=== PATIENT | male | born 1955 | race Caucasian/White ===

== ENCOUNTER 2019-09-18 12:19 | Outpatient (CLI) | payer OTHER, SELFPAY ==
--- NOTE | 2019-09-18 12:15 | XRR_ITS ---
PROCEDURE INFORMATION: Exam: XR Abdomen, 1 View Exam date and time: 09/18/2019 12:47 PM Age: 63 years old Clinical indication: Condition or disease; Other: Renal and ureteric calculus; Prior surgery; Surgery date: 6+ months; Surgery type: Lithotripsy TECHNIQUE: Imaging protocol: XR of the abdomen. Views: Frontal supine view of the abdomen. 1 View. COMPARISON: CR XR KUB [id number] 08/28/2018 12:24 PM FINDINGS: Gastrointestinal tract: Normal. No bowel dilation. Organs: There are several faint millimeter in size calcifications overlying the left renal shadow, similar to prior study. Bones/joints: Unremarkable. XR/XR KUB [id number] IMPRESSION: There are several faint millimeter in size calcifications overlying the left renal shadow, similar to prior study.
== END 2019-09-18 12:20 | disposition home or self-care (01) ==
LOC: RAD 12:27
PROVIDERS: Family Provider Family Medicine; PCP Internal Medicine; Visit Provider Urology
DX: N20.2 Calculus of kidney with calculus of ureter (principal)
CPT/HCPCS: 74018; 81001

== ENCOUNTER 2020-04-18 18:00 | Inpatient (IN) | payer OTHER, MEDICARE, SELFPAY ==
[2020-04-18] VITALS (7 sets, daily range): BP systolic 121–145; BP diastolic 73–99; PULSE 62–70; RESP 16–18; TEMP 36.6; O2SAT 94–98; BMI 31.7
--- NOTE | 2020-04-18 18:10 | XRR_ITS ---
PROCEDURE INFORMATION: Exam: XR Left Knee Exam date and time: 04/18/2020 6:12 PM Age: 64 years old Clinical indication: Injury or trauma; Fall; Initial encounter; Blunt trauma; Knee; Left TECHNIQUE: Imaging protocol: XR Left knee. Views: 3 views. COMPARISON: No relevant prior studies available. FINDINGS: Bones/joints: There is an overriding fracture of the proximal fibula neck. No fracture of the proximal tibia, femur or patella. Soft tissues: Normal. XR/XR knee LT 3V* [id number] IMPRESSION: There is an overriding fracture of the proximal fibula neck.
--- NOTE | 2020-04-18 18:10 | XRR_ITS ---
PROCEDURE INFORMATION: Exam: XR Left Foot Exam date and time: 04/18/2020 6:41 PM Age: 64 years old Clinical indication: Injury or trauma; Fall; Initial encounter; Blunt trauma; Foot; Left; Injury date: Today TECHNIQUE: Imaging protocol: XR Left foot. Views: 1 or 2 views. COMPARISON: No relevant prior studies available. FINDINGS: Bones/joints: No periosteal reaction or inflammatory erosions. No acute fracture. No dislocation. There is a multi partite os peroneum. The Lisfranc joint alignment is intact. No bony destruction or osteomyelitis. Soft tissues: There is no foreign body. XR/XR foot LT 2V [id number] IMPRESSION: No acute bony abnormality is identified.
--- NOTE | 2020-04-18 18:10 | XRR_ITS ---
PROCEDURE INFORMATION: Exam: XR Left Tibia and Fibula Exam date and time: 04/18/2020 6:43 PM Age: 64 years old Clinical indication: Injury or trauma; Fall; Initial encounter; Fracture, traumatic; Displaced; Left; Shaft of the tibia; Injury date: Today TECHNIQUE: Imaging protocol: XR Left tibia and fibula. Views: 2 views. COMPARISON: No relevant prior studies available. FINDINGS: Bones/joints: There is a spiral fracture of the distal tibia metadiaphysis with overriding of the fracture fragments. No definite extension of the tibia fracture into the ankle joint. There is a overriding fracture of the proximal fibula neck. Soft tissues: There is soft tissue edema. No foreign body. XR/XR tibia fibula LT 2V [id number] IMPRESSION: 1. There is a spiral fracture of the distal tibia metadiaphysis with overriding of the fracture fragments. 2. There is a overriding fracture of the proximal fibula neck.
--- NOTE | 2020-04-18 18:11 | XRR_ITS ---
PROCEDURE INFORMATION: Exam: XR Left Ankle Exam date and time: 04/18/2020 6:41 PM Age: 64 years old Clinical indication: Injury or trauma; Fall; Initial encounter; Blunt trauma; Ankle; Left; Injury date: Today TECHNIQUE: Imaging protocol: XR Left ankle. Views: 1 or 2 views. COMPARISON: No relevant prior studies available. FINDINGS: Bones/joints: There is a spiral fracture of the distal tibia metadiaphysis with overriding of the fracture fragments. No definite extension of the tibia fracture into the ankle joint. There is a overriding fracture of the proximal fibula neck. No knee joint effusion. No additional acute fracture in the ankle. Soft tissues: There is soft tissue edema. No foreign body. XR/XR ankle LT 2V [id number] IMPRESSION: 1. There is a spiral fracture of the distal tibia metadiaphysis with overriding of the fracture fragments. No extension into the ankle joint is identified. 2. There is a overriding fracture of the proximal fibula neck.
--- NOTE | 2020-04-18 18:37 | W.ED.EXTPRO ---
HPI - Extremity Problem General: Chief complaint: Extremity Injury, Lower Stated complaint: FALL WITH LEG DEFORMITY Time Seen by Provider: 04/18/20 18:14 Source: patient and EMS Mode of arrival: EMS Limitations: no limitations History of Present Illness: HPI Narrative: Julio is a very nice 64-year-old male who comes in complaining of injury to his left lower leg. He was working in at home when the sheet rock that he was standing on gave way causing him to fall through. He had a obvious deformity of his left lower leg to the left side. Is able to position himself and comfort and able to straighten his leg back out. Is complaining of severe pain to his left lower extremity. He denies any distal numbness or weakness of the foot. He denies any injuries to any other parts of his body. Denies any numbness or weakness. He is unable to bear weight secondary to pain. MD Complaint: extremity pain Pain Consistency: constant Location: left Severity scale (1-10): 8 Quality: sharp and dull Radiation: none Relieving factors: immobilization Exacerbating factors: range of motion and weight bearing Associated symptoms: Deny chest pain, fever(s) or rash Review of Systems Const: Denies: fever(s), chills, body aches, fatigue, malaise or diaphoresis Eyes: Denies: change in vision, blurry vision, photophobia, eye discomfort, eye discharge, eye redness or yellow eyes ENMT: Denies: throat pain, odynophagia, hoarseness, swelling of lips/tongue, ear or mastoid pain, ear discharge, change in hearing or nasal discharge Card: Denies: chest pain, palpitations, irregular heart rhythm, edema, lightheadedness, syncope, pre-syncope, dyspnea on exertion or orthopnea Resp: Denies: dyspnea, productive cough, non-productive cough, wheezing, hemoptysis or chest congestion GI: Denies: abdominal pain, nausea, vomiting, hematemesis, coffee ground emesis, heartburn, diarrhea, constipation, GI cramping, hematochezia or melena : Denies: flank pain, dysuria, urinary frequency, urinary urgency or hematuria Musc: Reports: extremity pain and joint pain; Denies: neck pain, back pain, extremity swelling, joint swelling, joint redness, joint warmth or joint stiffness Skin/Breast: Denies: rash, pruritus, erythema, skin pain or skin tenderness Neuro: Denies: headache(s), numbness in extremities, weakness in extremities, sensory changes, lack of coordination, difficulty walking, dizziness, vertigo, confusion, Slurred speech present or seizure-like activity Jf/Lymph: Denies: easy bruising, easy bleeding, petechiae, purpura or enlarged lymph nodes All/Imm: Denies: urticaria, throat swelling, tongue swelling, facial swelling or acute wheezing PFSH ED PFSH: Medical History (Updated 04/18/20 @ 21:28 by Shilpa Contreras) BPH without obstruction/lower urinary tract symptoms Hyperlipidemia Hypertension Recurrent kidney stones Renal and ureteric calculus Status post extracorporeal shock wave therapy WITH STENT PLACEMENTS X3 Surgical History (Updated 04/18/20 @ 18:38 by Shilpa Contreras) S/P trigger finger release Family History Mother , at age 73 Leukemia Father , at age 78 Parkinsons Heart disease Other CAD (coronary artery disease) Cancer Dementia Social History Smoking and tobacco status: never smoked Alcohol intake: current Alcohol intake frequency: holidays/special occasions only Adopted: No Caregiver/support person: No Lives independently: No Household members: spouse Marital status: Current occupational status: disabled History of recent travel: No Physical Exam Const: COMMON NORMALS: no acute distress, patient oriented x3, no limitations and alert GENERAL APPEARANCE: cooperative HENMT: COMMON NORMALS: normocephalic, atraumatic, external ears normal, EAC's normal and Normal external nose present HEAD & SCALP: normal to inspection, normocephalic and atraumatic FACE & SINUS: normal facial exam and face symmetric NOSE: Normal external nose present and Normal nares present EXTERNAL EAR: Yes external ears normal EXTERNAL AUDITORY CANAL: EAC's normal MOUTH: Normal oral and palatal mucosa present, lip normal and tongue normal Eye: COMMON NORMALS: Equal, round and reactive pupils present and conjunctivae normal GENERAL EYE: appearance normal, both eyes and all related structures ALIGNMENT: Yes alignment normal PERIORBITAL: periorbital findings normal EYELID: eyelids normal CONJUNCTIVA: Yes conjunctivae normal SCLERA: sclerae normal PUPIL: Yes Equal, round and reactive pupils present Neck/C-Spine: COMMON NORMALS: full ROM, no lymphadenopathy, supple, no meningeal signs and no JVD GENERAL: Yes normal visual inspection and Yes trachea midline Chest: COMMONS NORMALS: normal inspection of the chest and normal palpation of entire chest wall Resp: COMMON NORMALS: normal respiratory effort, No retractions, No use of accessory muscles and clear to auscultation bilaterally EFFORT & INSPECTION: Yes able to speak in complete sentences and Yes symmetric chest movement AUSCULTATION: clear to auscultation bilaterally, no crackles, no rales, no rhonchi and no wheezes Cardio: COMMON NORMALS: no JVD, regular rate, regular rhythm, S1 normal heart sound present and S2 normal heart sound present RATE: regular rate RHYTHM: regular rhythm HEART SOUNDS: S1 normal heart sound present, S2 normal heart sound present, no click, no gallops, no murmurs and no rubs GI: COMMON NORMALS: Soft to palpation and No hepatosplenomegaly present PALPATION: Yes Soft to palpation, No Tenderness to palpation present (GI), No Guarding due to palpation present (GI), No Rigid due to palpation, Yes No hepatosplenomegaly present, No Hernia present, No Palpable mass present and No Pulsatile mass present : COMMON NORMALS: Yes no CVA tenderness BLADDER/KIDNEY EXAM: Yes no CVA tenderness Back/Pelvis: COMMON NORMALS: no CVA tenderness, thoracic and lumbar spine normal to inspection, no thoracic nor lumbar tenderness and thoraco-lumbar ROM normal Extremity: COMMON NORMALS: capillary refill normal, no joint enlargement and no clubbing, cyanosis or edema NARRATIVE EXTREMITY EXAM: Left lower extremity with tenderness to palpation just below the knee extending all the way down to the ankle. Dorsalis pedis and posterior tibial pulses intact to the foot. Capillary refill less than 3 seconds. Patient able to wiggle his toes and has normal sensation distally in the foot. No foot pain to palpation. Neuro: COMMON NORMALS: patient oriented x3, CN's II-XII intact bilaterally, moves all extremities, no focal motor deficits and no sensory deficits noted SENSORIUM/ORIENTATION: Yes alert MENINGEAL SIGNS: Yes no meningeal signs SPEECH: speech normal Psych: COMMON NORMALS: mental status grossly normal, Normal thought process present, cooperative, normal affect, speech normal and activity/motor behavior normal SPEECH: Yes normal speech THOUGHT PROCESS: Normal thought process present Skin: COMMON NORMALS: no rashes or lesions noted, turgor normal, no jaundice, no petechiae and no mottling GENERAL SKIN EXAM: no rashes or lesions noted and turgor normal Course Vital Signs: Vital signs: Vital Signs Temperature 97.8 F 04/18/20 18:04 Pulse Rate 67 04/18/20 20:00 Respiratory Rate 16 04/18/20 21:12 Blood Pressure 145/99 04/18/20 20:00 Pulse Oximetry 96 04/18/20 21:12 MDM - Extremity (Nontraumatic) MDM Narrative: Medical decision making narrative: The case was reviewed with both Drs. Valdez and Tasneem, they will admit and consult respectively. The patient was placed in a posterior and sugar tong splint but his pain was still not controlled. He was adamant he would not be able to go home secondary to the significant pain he was still having. Patient be admitted for surgery likely in the next 1 to 2 days. Lab Data: Attestation: I reviewed the patient's lab results. Labs: Lab Results 04/18/20 04/18/20 04/18/20 Range/Units 19:29 19:29 19:29 WBC 16.6 H (4.0-10.0) 10^3/ uL RBC 5.06 (4.1-5.3) 10^6/u L Hgb 15.0 (11.7-16.6) g/dL Hct 45.8 (42.0-52.0) % MCV 90.5 (80-94) fL MCH 29.6 (28.0-34.0) pg MCHC 32.8 (30.0-36.0) g/dL RDW 12.5 (12.1-15.1) % Plt Count 239 (130-400) 10^3/c mm MPV 9.7 (7.4-10.4) fL Neut % (Auto) 83.3 % Lymph % (Auto) 10.0 % [place] % (Auto) 5.3 % Eos % (Auto) 0.4 % Baso % (Auto) 0.4 % Neut # (Auto) 13.78 H (1.8-7.7) 10^3/u L Lymph # (Auto) 1.7 (0.8-4.8) 10^3/u L [place] # (Auto) 0.9 (0.2-0.9) 10^3/u L Eos # (Auto) 0.1 (0.0-0.8) 10^3/u L Baso # (Auto) 0.1 (0.0-0.1) 10^3/u L Nucleated RBC % (a uto) 0 % Nucleated RBCs # 0.0 /100WBC PT 12.10 (12.1-14.9) SECO NDS INR 0.87 (0.8-1.2) Sodium 139 (136-145) mmol/L Potassium 3.6 (3.5-5.1) mmol/L Chloride 100 (98-107) mmol/L Carbon Dioxide 28 (22-29) mmol/L Anion Gap 14.6 (5-19) BUN 18 (8-23) mg/dL Creatinine 1.3 H (0.7-1.2) mg/dL GFR Calculation 55.9 L (90-130) mL/min Glucose 111 (65-115) mg/dL Calculated Osmolal ity 285 (285-295) mOsm/k g Calcium 9.2 (8.5-10.5) mg/dL Total Bilirubin 0.5 (0.15-1.2) mg/dL AST 20 (0-40) U/L ALT 25 (0-41) U/L Alkaline Phosphata se 91 (40-130) IU/L Total Protein 7.4 (6.6-8.7) g/dL Albumin 4.5 (3.5-5.2) g/dL Globulin 2.9 (1.3-4.6) g/dL Imaging Data^: CT Left Tib-Fib: Radiologist's impression: [address] [place] [address] CT Scan Report Signed Patient: Julio Peña Unit #: [id number] : 1955 Age/Sex: 64 / M ADM Date: 04/18/20 Loc: ER Room/Bed: Attending Dr: Ordering Provider/Ordering MD: Shilpa Contreras DO Date of Service: 04/18/20 Procedure(s): CT lower leg LT wo con* [id number] Accession Number(s): [id number] Report Number: [id number] PROCEDURE INFORMATION: Exam: CT Left Lower Extremity Without Contrast; Lower Leg Exam date and time: 04/18/2020 7:28 PM Age: 64 years old Clinical indication: Injury or trauma; Initial encounter; Fracture, traumatic; Displaced; Fibula and tibia; Left; Shaft of the fibula; Lower end of tibia; Patient HX: L tib/fib FX from fall; Additional info: Fracture/injury TECHNIQUE: Imaging protocol: CT of the Left lower extremity without contrast was performed. Exam focused on the lower leg. Radiation optimization: All CT scans at this facility use at least one of these dose optimization techniques: automated exposure control; mA and/or kV adjustment per patient size (includes targeted exams where dose is matched to clinical indication); or iterative reconstruction. COMPARISON: CR XR tibia fibula LT 2V [id number] 04/18/2020 6:13 PM RADIATION DOSE METRICS: Total DLP (mGy-cm): 1111.71 FINDINGS: Bones/joints: There is an overriding fracture of the proximal fibula metadiaphysis. There is a comminuted overriding spiral fracture of the distal tibia metadiaphysis with nondisplaced fracture lines extending into the tibiotalar joint. There is posterior displacement of the distal fracture fragment with foreshortening of the tibia. Nondisplaced fracture line in the sagittal plane and 2 fracture lines in the coronal plane are identified at the articular surface of the ankle best seen on series 3, image 171, sagittal image series 401, image 42 and coronal image 35. No dislocation. No fracture of the visualized talus calcaneus or navicular bone. The distal fibula is intact. The ankle mortise is intact. There is no knee joint effusion. Soft tissues: No foreign body. There is soft tissue edema adjacent to the fractures of the tibia and fibula. CT/CT lower leg LT wo con* [id number] IMPRESSION: 1. There is an overriding fracture of the proximal fibula metadiaphysis. 2. Comminuted overriding fracture of the distal tibial metadiaphysis extending into the tibiotalar joint. Radiation Dose CTDIVOL = (mGy): DLP = 1111.71 (mGy-cm) Dictated By: Maggie Leung Signed By: Maggie Leung Signed Date/Time: 04/18/202002 DD/ 00 Discharge Plan Discharge Patient Disposition: Admitted As Inpatient Clinical Impression: Uncontrolled pain Closed fracture of left fibula and tibia Qualifiers: Encounter type: initial encounter Qualified Code(s): S82.202A - Unspecified fracture of shaft of left tibia, initial encounter for closed fracture Condition: Stable Referrals: Rajiv Cruz [Primary Care Provider] - Coding Level of Care Code ED Oral Surgeon for Chg Fwd Exam Comprehensive
--- NOTE | 2020-04-18 19:13 | CTR_ITS ---
PROCEDURE INFORMATION: Exam: CT Left Lower Extremity Without Contrast; Lower Leg Exam date and time: 04/18/2020 7:28 PM Age: 64 years old Clinical indication: Injury or trauma; Initial encounter; Fracture, traumatic; Displaced; Fibula and tibia; Left; Shaft of the fibula; Lower end of tibia; Patient HX: L tib/fib FX from fall; Additional info: Fracture/injury TECHNIQUE: Imaging protocol: CT of the Left lower extremity without contrast was performed. Exam focused on the lower leg. Radiation optimization: All CT scans at this facility use at least one of these dose optimization techniques: automated exposure control; mA and/or kV adjustment per patient size (includes targeted exams where dose is matched to clinical indication); or iterative reconstruction. COMPARISON: CR XR tibia fibula LT 2V [id number] 04/18/2020 6:13 PM RADIATION DOSE METRICS: Total DLP (mGy-cm): 1111.71 FINDINGS: Bones/joints: There is an overriding fracture of the proximal fibula metadiaphysis. There is a comminuted overriding spiral fracture of the distal tibia metadiaphysis with nondisplaced fracture lines extending into the tibiotalar joint. There is posterior displacement of the distal fracture fragment with foreshortening of the tibia. Nondisplaced fracture line in the sagittal plane and 2 fracture lines in the coronal plane are identified at the articular surface of the ankle best seen on series 3, image 171, sagittal image series 401, image 42 and coronal image 35. No dislocation. No fracture of the visualized talus calcaneus or navicular bone. The distal fibula is intact. The ankle mortise is intact. There is no knee joint effusion. Soft tissues: No foreign body. There is soft tissue edema adjacent to the fractures of the tibia and fibula. CT/CT lower leg LT wo con* [id number] IMPRESSION: 1. There is an overriding fracture of the proximal fibula metadiaphysis. 2. Comminuted overriding fracture of the distal tibial metadiaphysis extending into the tibiotalar joint. Radiation Dose CTDIVOL = (mGy): DLP = 1111.71 (mGy-cm)
[2020-04-18] MEDS: HYDROmorphone 1 mg/mL INJ 1 mL IVP ×2 (19:25→21:12)
[2020-04-18] MEDS: sodium chloride 0.9% 1,000 ML 100 ML IV (19:26)
[2020-04-18] MEDS: ondansetron 2 mg/ML SDV 2 mL 4 MG IVP (19:26)
[2020-04-18 19:52] LABS: Basophils # 0.1 10^3/uL (0.0-0.1); Basophils % 0.4 %; Eosinophils # 0.1 10^3/uL (0.0-0.8); Eosinophils % 0.4 %; Hematocrit 45.8 % (42.0-52.0); Lymphocytes # 1.7 10^3/uL (0.8-4.8); Mean Corpuscular HGB Conc 32.8 g/dL (30.0-36.0); Mean Corpuscular Hemoglobin 29.6 pg (28.0-34.0); Mean Corpuscular Volume 90.5 fL (80-94); Mean Platelet Volume 9.7 fL (7.4-10.4); Monocytes # 0.9 10^3/uL (0.2-0.9); Monocytes % 5.3 %; Neutrophils # 13.78 10^3/uL (1.8-7.7); Neutrophils % 83.3 %; Nucleated Red Blood Cells % 0 %; Platelet Count 239 10^3/cmm (130-400); Red Blood Count 5.06 10^6/uL (4.1-5.3); Red Cell Distribution Width 12.5 % (12.1-15.1); White Blood Count 16.6 10^3/uL (4.0-10.0)
[2020-04-18 20:09] LABS: INR 0.87 (0.8-1.2)
[2020-04-18 20:23] LABS: Alanine Aminotransferase 25 U/L (0-41); Albumin Level 4.5 g/dL (3.5-5.2); Alkaline Phosphatase 91 IU/L (40-130); Anion Gap 14.6 (5-19); Aspartate Amino Transferase 20 U/L (0-40); Blood Urea Nitrogen 18 mg/dL (8-23); Calcium 9.2 mg/dL (8.5-10.5); Carbon Dioxide 28 mmol/L (22-29); Chloride 100 mmol/L (98-107); Globulin 2.9 g/dL (1.3-4.6); Glomerular Filtration Rate 55.9 mL/min (90-130); Glucose 111 mg/dL (65-115); Osmolality Calculated 285 mOsm/kg (285-295); Potassium 3.6 mmol/L (3.5-5.1); Sodium 139 mmol/L (136-145); Total Bilirubin 0.5 mg/dL (0.15-1.2); Total Protein 7.4 g/dL (6.6-8.7)
--- NOTE | 2020-04-18 21:38 | P.HP_ITS ---
Providers/Chief Complaint Admitting Physician: Mallory Valdez MD Primary Care Provider: Rajiv Cruz Chief Complaint: FALL WITH LEG DEFORMITY History of Present Illness Julio Peña is a 64 year old male with PMHx noted below presents with complaints of left ankle pain, inability to weight-bear since a fall earlier today. He states that they are in the process of renovating his fireplace and what he thought was a concrete floor turned out to be sheetrock and upon stepping on this had his foot caught following which he had immediate severe pain in his left ankle and inability to weight-bear. He is currently in the process of being splinted and is quite uncomfortable during the process. Imaging confirms a tib-fib fracture. Additional work-up shows leukocytosis with a white count of 16.6, otherwise normal CBC, normal electrolytes, BUN of 18, creatinine of 1.3, normal coags. Vital signs are stable, he is currently afebrile and on room air. So far he has received a dose of Zofran, 2 mg of IV Dilaudid and Tylenol. Dr. Contreras has spoken with Dr. Boateng and it seems that additional equipment will need to be ordered for appropriate repair of fracture so likely surgery on Monday. Patient will be screened for COVID-19 in anticipation of surgery. Due to continued pain and need for appropriate pain control and anticipation of surgery he will be admitted to the hospital. is present at bedside during my evaluation in the ER. Both patient and spouse are agreeable to plan as outlined. Review of Systems Const: Denies: fever(s), chills, change in appetite, fatigue or malaise Eyes: Denies: change in vision ENMT: Denies: odynophagia Card: Denies: chest pain, swelling of feet/ankles or lightheadedness Resp: Denies: dyspnea, productive cough or non-productive cough GI: Denies: abdominal pain, nausea, vomiting, hematemesis or hematochezia : Reports: difficulty starting urination and oliguria; Denies: dysuria or hematuria Musc: Reports: extremity pain (L ankle pain); Denies: back pain Skin/Breast: Denies: rash Neuro: Reports: difficulty walking (due to left ankle pain); Denies: numbness in extremities or weakness in extremities Psych: Denies: anxiety Medications/Allergies Home Medications Medication Instructions Recorded Confirmed Last Taken Type acetaminophen 325 mg tablet 325 mg PO QID PRN 09/18/19 04/18/20 04/17/20 History atenolol 100 mg tablet See Rx Instructions PO DAILY 09/18/19 04/18/20 04/18/20 History atorvastatin 40 mg tablet 40 mg PO DAILY 09/18/19 04/18/20 04/17/20 History bupropion HCl 300 mg 24 hr tablet, 300 mg PO QAM 09/18/19 04/18/20 04/18/20 History extended release cyclobenzaprine 10 mg tablet 10 mg PO .prn tab 09/18/19 04/18/20 04/17/20 History finasteride 5 mg tablet 5 mg PO DAILY 09/18/19 04/18/20 04/18/20 History fluticasone propionate 50 1 spray INTRANASAL .prn ml 09/18/19 04/18/20 Unknown History mcg/actuation nasal spray,suspension gabapentin 100 mg capsule 200 mg PO QID cap 09/18/19 04/18/20 04/18/20 History hydrochlorothiazide 25 mg tablet 25 mg PO DAILY 09/18/19 04/18/20 04/18/20 History methocarbamol 750 mg tablet 750 mg PO DAILY tab 09/18/19 04/18/20 04/17/20 H istory psyllium seed (sugar) 1 tbsp PO DAILY 09/18/19 04/18/20 Unknown History albuterol sulfate [ProAir HFA] 2 puff INHALATION 6XD PRN 04/18/20 04/18/20 Unknown History aspirin [Aspirin Low Dose] 81 mg PO DAILY 04/18/20 04/18/20 04/18/20 History ibuprofen 200 - 800 mg PO DAILY 04/18/20 04/18/20 04/18/20 History pantoprazole 20 mg PO DAILY 04/18/20 04/18/20 04/18/20 History Allergies Allergy/AdvReac Type Severity Reaction Status Date / Time nifedipine Allergy Unknown headache Verified 04/18/20 18:54 PFSH Acute PFSH: Medical History BPH without obstruction/lower urinary tract symptoms Hyperlipidemia Hypertension Recurrent kidney stones Renal and ureteric calculus Surgical History S/P trigger finger release Status post extracorporeal shock wave therapy WITH STENT PLACEMENTS X3 Family History Mother , at age 73 Leukemia Father , at age 78 Parkinsons Heart disease Other CAD (coronary artery disease) Cancer Dementia Social History (Updated 04/18/20 @ 21:39 by Mallory Valdez MD) Smoking and tobacco status: never smoked Alcohol intake: current Alcohol intake frequency: holidays/special occasions only Adopted: No Caregiver/support person: No Lives independently: No Household members: spouse Marital status: service: Yes status: Retired Current occupational status: disabled History of recent travel: No Vitals/I&O/Wt Last Vital Signs Temp 97.8 F 04/18/20 18:04 Pulse 67 04/18/20 20:00 Resp 16 04/18/20 21:12 BP 145/99 04/18/20 20:00 Pulse Ox 96 04/18/20 21:12 Weight last 48 hrs Weight 112.037 kg Physical Exam Const: COMMON NORMALS: no acute distress, patient oriented x3 and alert G ENERAL APPEARANCE: cooperative and comfortable NUTRITIONAL APPEARANCE: overweight ORIENTATION/CONSCIOUSNESS: Yes awake HENMT: COMMON NORMALS: normocephalic, atraumatic, hearing grossly normal bilaterally and moist oral mucous membranes HEAD & SCALP: normocephalic and atraumatic Eye: COMMON NORMALS: Equal, round and reactive pupils present, EOMs intact bilaterally and conjunctivae normal CONJUNCTIVA: Yes conjunctivae normal PUPIL: Yes Equal, round and reactive pupils present Neck/C-Spine: COMMON NORMALS: full ROM GENERAL: Yes normal visual inspection and Yes trachea midline Resp: COMMON NORMALS: normal respiratory effort, No retractions, No use of accessory muscles and clear to auscultation bilaterally EFFORT & INSPECTION: Yes able to speak in complete sentences, Yes symmetric chest movement and No tachypneic AUSCULTATION: clear to auscultation bilaterally OTHER: -on RA Cardio: COMMON NORMALS: regular rate, regular rhythm, S1 normal heart sound present, S2 normal heart sound present and No murmurs present (Cardio) RATE: regular rate RHYTHM: regular rhythm HEART SOUNDS: S1 normal heart sound present and S2 normal heart sound present GI: COMMON NORMALS: Normal to inspection, nondistended, normoactive bowel parul nds present, Soft to palpation and non-tender INSPECTION: Yes central obesity PALPATION: Yes Soft to palpation Extremity: NARRATIVE EXTREMITY EXAM: -LLE splinted Neuro: COMMON NORMALS: patient oriented x3, moves all extremities, no focal motor deficits and no sensory deficits noted SENSORIUM/ORIENTATION: Yes alert Psych: COMMON NORMALS: mental status grossly normal, Normal thought process present, cooperative, normal affect and speech normal SPEECH: Yes normal speech THOUGHT PROCESS: Normal thought process present Skin: COMMON NORMALS: no rashes or lesions noted, no jaundice, no petechiae and no mottling GENERAL SKIN EXAM: no rashes or lesions noted Data : 04/18/20 19:29 04/18/20 19:29 A&P Assessment and plan (1) Closed fracture of left fibula and tibia: -noted L ankle pain, inability to weight bear following mechanical fall at home earlier today -Found to have a tib-fib fracture, closed -Splinted in ED -Strict fall precautions -Place Mccann catheter, assess daily for removal -Orthopedic consult by Dr. Boateng; due to need to order special equipment will likely need to defer surgery to Monday -Pain control as needed -PT evaluation when appropriate -bowel regimen -UA pending, noted leukocytosis, afebrile -monitor vital signs Status: Acute Qualifiers: Encounter type: initial encounter Qualified Code(s): S82.202A - Unspecified fracture of shaft of left tibia, initial encounter for closed fracture; S82.402A - Unspecified fracture of shaft of left fibula, initial encounter for closed fracture (2) Hypertension: -Monitor vital signs -Resume oral antihypertensives Status: Chronic Qualifiers: Hypertension type: essential hypertension Qualified Code(s): I10 - Essential (primary) hypertension (3) Hyperlipidemia: -Resume statin Status: Chronic Qualifiers: Hyperlipidemia type: unspecified Qualified Code(s): E78.5 - Hyperlipidemia, unspecified (4) BPH without obstruction/lower urinary tract symptoms: -Resume finasteride Status: Acute Additional A&P Information -Chronic pain; resume pain meds -Morbid obesity: BMI-32 kg/m2 -LISA on CKD stage 2; baseline Cr around 1.1-1.2; IVF hydration, repeat labs in AM -low salt diet for now, NPO when surgery date set -GI ppx with PPI -DVT ppx with heparin for now, hold before OR Attestations Medical Necessity Statement*: Julio Valle [facility]'s hospital stay will require greater than 2 midnights for management of left ankle fracture status post mechanical fall pending surgical intervention, needs appropriate pain control. Time Spent in Patient Care: Greater than 35 minutes (>than 50% of time spent in counselling and/or direct pt care on unit) . 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
--- NOTE | 2020-04-18 21:42 | ECG_ITS ---
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 Measurements Intervals Stigler Rate: 62 P: 2 OR: 172 QRS: -63 QRSD: 107 T: 12 QT: 426 QTc: 434 Interpretive Statements SINUS RHYTHM PATTERN CONSISTENT WITH PULMONARY DISEASE LEFT ANTERIOR FASCICULAR BLOCK [QRS AXIS <= -45, QR IN I, RS IN II] No previous ECG available for comparison Electronically Signed On 04-19-2020 15:18:17 CDT by Arthur Palacio M.D. [email or web address] hospital [facility].[email or web address]/store/OM/[id number]
--- NOTE | 2020-04-18 22:03 | PC.NURSE ---
POSTERIOR AND STIRRUP SPLINT APPLIED TO PT'S LT LEG. GOOD SENSATION AND CAP REFILL AFTER SPLINT APPLIED.
[2020-04-18 22:41] LABS: SARS Covid-2 Antigen Negative (Negative)
[2020-04-19] VITALS (12 sets, daily range): BP systolic 130–155; BP diastolic 75–93; PULSE 65–74; RESP 16–20; TEMP 36.4–36.9; O2SAT 90–95
[2020-04-19] MEDS: heparin 5,000 unit/mL INJ 1 mL 5000 UNIT SUBCUT ×2 (00:02→20:50)
[2020-04-19] MEDS: sodium chloride 0.9% 1,000 ML 100 ML IV ×4 (00:02→20:50)
[2020-04-19 01:50] LABS: Add Urine Microscopic? NO
[2020-04-19 02:10] LABS: Bilirubin Urine Neg (Negative); Blood Urine Neg (Negative); Glucose Urine UA Norm (Normal); Ketones Urine Negative (Negative); Leukocyte Esterase Urine Negative (Negative); Nitrate Urine Negative (Negative); Protein Urine Neg (Negative); Specific Gravity, Urine 1.025 (1.005-1.030); Urine Appearance Clear (CLEAR); Urine Color Yellow (Yellow); Urobilinogen Urine Norm (Negative); pH Urine 5 (5-7)
[2020-04-19] MEDS: oxyCODONE-APAP 5-325 mg Tablet 1 TAB PO ×4 (03:59→16:55)
[2020-04-19] MEDS: morphine 4 mg/mL SDV 1 mL IVP (05:07)
[2020-04-19] MEDS: buPROPion XL (24 HR) 300 mg Tablet PO (05:10)
[2020-04-19 05:26] LABS: Basophils # 0.1 10^3/uL (0.0-0.1); Basophils % 0.6 %; Eosinophils # 0.1 10^3/uL (0.0-0.8); Eosinophils % 1.4 %; Hematocrit 41.2 % (42.0-52.0); Hemoglobin 13.2 g/dL (11.7-16.6); Lymphocytes # 2.2 10^3/uL (0.8-4.8); Lymphocytes % 23.4 %; Mean Corpuscular Hemoglobin 29.3 pg (28.0-34.0); Mean Corpuscular Volume 91.4 fL (80-94); Mean Platelet Volume 9.8 fL (7.4-10.4); Monocytes # 0.8 10^3/uL (0.2-0.9); Neutrophils # 6.34 10^3/uL (1.8-7.7); Neutrophils % 66.2 %; Nucleated Red Blood Cells % 0 %; Platelet Count 194 10^3/cmm (130-400); Red Blood Count 4.51 10^6/uL (4.1-5.3); Red Cell Distribution Width 12.6 % (12.1-15.1); White Blood Count 9.6 10^3/uL (4.0-10.0)
[2020-04-19 05:50] LABS: Anion Gap 12.3 (5-19); Blood Urea Nitrogen 18 mg/dL (8-23); Calcium 8.6 mg/dL (8.5-10.5); Carbon Dioxide 27 mmol/L (22-29); Chloride 103 mmol/L (98-107); Glomerular Filtration Rate 61.3 mL/min (90-130); Glucose 105 mg/dL (65-115); Osmolality Calculated 285 mOsm/kg (285-295); Potassium 3.3 mmol/L (3.5-5.1); Sodium 139 mmol/L (136-145)
[2020-04-19] MEDS: finasteride 5 mg Tablet PO (09:20)
[2020-04-19] MEDS: hydroCHLOROthiazide 25 mg Tablet PO (09:20)
[2020-04-19] MEDS: atorvastatin 40 mg Tablet PO (09:20)
[2020-04-19] MEDS: pantoprazole DR 40 mg Tablet 20 MG PO (09:20)
[2020-04-19] MEDS: gabapentin 100 mg Capsule 200 MG PO ×4 (09:21→20:50)
[2020-04-19] MEDS: aspirin 81 mg EC Tablet PO (09:21)
[2020-04-19] MEDS: atenolol 50 mg Tablet PO (09:21)
--- NOTE | 2020-04-19 11:05 | P.PN_ITS ---
Subjective Subjective: Interval history: No acute events overnight. Vitals and labs have been stable. Patient was discussed with orthopedic surgeon. He is awaiting orthopedic intervention. Vitals/I&O/Wt Last Vital Signs Temp 98.0 F 04/19/20 08:00 Pulse 70 04/19/20 09:05 Resp 18 04/19/20 09:18 BP 155/93 04/19/20 08:00 Pulse Ox 90 04/19/20 09:05 04/18/20 04/19/20 04/19/20 22:59 06:59 14:59 Intake Total 1000 / 1000 936.667 / 936.667 Output Total 220 / 220 460 / 460 Balance 780 / 780 476.667 / 476.667 Weight last 48 hrs Weight 116.709 kg Weight 112.037 kg Physical Exam Narrative: EXAM NARRATIVE: COMMON NORMALS: no acute distress, average body habitus, patient oriented x3 and alert GENERAL APPEARANCE: cooperative and comfortable ORIENTATION/CONSCIOUSNESS: Yes awake HENMT COMMON NORMALS: normocephalic and atraumatic HEAD & SCALP: normocephalic and atraumatic Eye GENERAL EYE: appearance normal, both eyes and all related structures Chest COMMONS NORMALS: normal inspection of the chest Resp COMMON NORMALS: normal respiratory effort EFFORT & INSPECTION: Yes able to speak in complete sentences and Yes symmetric chest movement Extremity GENERAL: Yes normal exam except as noted LEFT LOWER EXTREMITY: Yes lower leg (The patient has a splint in place. This is not removed for evaluation.) Left lower leg: Yes inspection (There is no significant swelling about the toes.), Yes palpation (There is no tenderness to palpation of the toes. There is tenderness with any range of motion.) and Yes neurovascular exam (Intact distal to the fracture site with no evidence of compartment syndrome.) Neuro COMMON NORMALS: patient oriented x3 SENSORIUM/ORIENTATION: Yes alert Psych COMMON NORMALS: mental status grossly normal APPEARANCE: Yes grossly normal ATTITUDE: Yes calm and Yes engaged ATTENTION/CONCENTRATION: Yes attention grossly intact Skin COMMON NORMALS: no rashes or lesions noted GENERAL SKIN EXAM: no rashes or lesions noted Urinary Catheter Management^ Urinary Catheter Management^: Mccann Latex: Cath Placed During This Visit: yes Reason for Continuing Indwelling Catheter: Perioperative Use in Selected Surgeries Urinary Catheter Date of Insertion: 04/19/20 Urinary Catheter Time of Insertion: 06:03 Data : 04/19/20 05:10 04/19/20 05:10 A&P Assessment and plan (1) Hypertension: -Monitor vital signs -Resume oral antihypertensives Status: Chronic Qualifiers: Hypertension type: essential hypertension Qualified Code(s): I10 - Essential (primary) hypertension (2) Hyperlipidemia: -Resume statin Status: Chronic Qualifiers: Hyperlipidemia type: unspecified Qualified Code(s): E78.5 - Hyperlipidemia, unspecified (3) BPH without obstruction/lower urinary tract symptoms: -Resume finasteride Status: Acute Additional A&P Information -Chronic pain; resume pain meds -Morbid obesity: BMI-32 kg/m2 -LISA on CKD stage 2; baseline Cr around 1.1-1.2; IVF hydration, repeat labs in AM -low salt diet for now, NPO when surgery date set -GI ppx with PPI -DVT ppx with heparin for now, hold before OR Attestations Medical Necessity Statement*: hospital stay as needed for orthopedic intervention Coding Level of Care Code 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
--- NOTE | 2020-04-19 12:23 | PM.CONSULT ---
Providers/Reason For Consult Consulting Physican/Specialty*: Dr. Megan Boateng - Orthopedics Reason for Consult*: Left intra-articular distal tibia fracture Requesting Physcian: Dr. Contreras - Emergency department Attending Physician: Danny Singh MD Primary Care Provider: Rajiv Cruz History of Present Illness History of Present Illness Julio Peña is a 64 year old male who was in his usual state of health when he fell through a floor while renovating a fireplace. The patient states he thought the floor was actually concrete, however, sheet rock, and he fell through to his shoulders. He caught himself on his shoulders but had significant impact to the left lower extremity. He was unable to weight-bear. He pulled himself out of the hole and called 911 immediately. The patient was admitted through the emergency department last evening. Upon review of his images, special equipment has been ordered and from [place]. Review of Systems Const: Denies: fever(s), chills, body aches, change in appetite, fatigue, malaise or diaphoresis Eyes: Denies: change in vision, blurry vision, photophobia, eye discomfort, eye discharge, eye redness or yellow eyes ENMT: Denies: throat pain, odynophagia, hoarseness, swelling of lips/tongue, ear or mastoid pain, ear discharge, change in hearing or nasal discharge Card: Denies: chest pain, palpitations, irregular heart rhythm, edema, swelling of feet/ankles, lightheadedness, syncope, pre-syncope, dyspnea on exertion or orthopnea Resp: Denies: dyspnea, productive cough, non-productive cough, wheezing, hemoptysis or chest congestion GI: Denies: abdominal pain, nausea, vomiting, hematemesis, coffee ground emesis, heartburn, diarrhea, constipation, GI cramping, hematochezia or melena : Reports: difficulty starting urination and oliguria; Denies: flank pain, dysuria, urinary frequency, urinary urgency or hematuria Musc: Reports: extremity pain (L ankle pain) and joint pain; Denies: neck pain, back pain, extremity swelling, joint swelling, joint redness, joint warmth or joint stiffness Skin/Breast: Denies: rash, pruritus, erythema, skin pain or skin tenderness Neuro: Reports: difficulty walking (due to left ankle pain); Denies: headache(s), numbness in extremities, weakness in extremities, sensory changes, lack of coordination, dizziness, vertigo, confusion, Slurred speech present or seizure-like activity Psych: Denies: anxiety Jf/Lymph: Denies: easy bruising, easy bleeding, petechiae, purpura or enlarged lymph nodes All/Imm: Denies: urticaria, throat swelling, tongue swelling, facial swelling or acute wheezing Meds/Allergies Home Medications and Allergies Home Medications Medication Instructions Recorded Confirmed Last Taken Type acetaminophen 325 mg tablet 325 mg PO QID PRN 09/18/19 04/18/20 04/17/20 History atenolol 100 mg tablet See Rx Instructions PO DAILY 09/18/19 04/18/20 04/18/20 History atorvastatin 40 mg tablet 40 mg PO DAILY 09/18/19 04/18/20 04/17/20 History bupropion HCl 300 mg 24 hr tablet, 300 mg PO QAM 09/18/19 04/18/20 04/18/20 History extended release cyclobenzaprine 10 mg tablet 10 mg PO .prn tab 09/18/19 04/18/20 04/17/20 History finasteride 5 mg tablet 5 mg PO DAILY 09/18/19 04/18/20 04/18/20 History fluticasone propionate 50 1 spray INTRANASAL .prn ml 09/18/19 04/18/20 Unknown History mcg/actuation nasal spray,suspension gabapentin 100 mg capsule 200 mg PO QID cap 09/18/19 04/18/20 04/18/20 History hydrochlorothiazide 25 mg tablet 25 mg PO DAILY 09/18/19 04/18/20 04/18/20 History methocarbamol 750 mg tablet 750 mg PO DAILY tab 09/18/19 04/18/20 04/17/20 History psyllium seed (sugar) 1 tbsp PO DAILY 09/18/19 04/18/20 Unknown History albuterol sulfate [ProAir HFA] 2 puff INHALATION 6XD PRN 04/18/20 04/18/20 Unknown History aspirin [Aspirin Low Dose] 81 mg PO DAILY 04/18/20 04/18/20 04/18/20 History ibuprofen 200 - 800 mg PO DAILY 04/18/20 04/18/20 04/18/20 History pantoprazole 20 mg PO DAILY 04/18/20 04/18/20 04/18/20 History Allergies Allergy/AdvReac Type Severity Reaction Status Date / Time nifedipine Allergy Unknown headache Verified 04/18/20 18:54 Current Medications Current Medications Generic Name Dose Route Start Last Admin Trade Name Freq PRN Reason Stop Dose Admin Aspirin 81 mg 04/19/20 09:00 04/19/20 09:21 Aspirin Ec PO 81 mg DAILY DANISHA Administration Atenolol 50 mg 04/19/20 09:00 04/19/20 09:21 Tenormin PO 50 mg DAILY DANISHA Administration Atorvastatin Calcium 40 mg 04/19/20 09:00 04/19/20 09:20 Lipitor PO 40 mg DAILY DANISHA Administration Bupropion HCl 300 mg 04/19/20 06:00 04/19/20 05:10 Wellbutrin Xl (24 Hr) PO 300 mg QAM DANISHA Administration Finasteride 5 mg 04/19/20 09:00 04/19/20 09:20 Proscar PO 5 mg DAILY DANISHA Administration Gabapentin 200 mg 04/19/20 09:00 04/19/20 09:21 Neurontin PO 200 mg QID DANISHA Administration Heparin Sodium (Beef Lung) 5,000 unit 04/18/20 23:10 04/19/20 09:48 Heparin SUBCUT Not Given Q12H COUNTS INCLUDE 234 BEDS AT THE [facility] Hydrochlorothiazide 25 mg 04/19/20 09:00 04/19/20 09:20 Hctz PO 25 mg DAILY DANISHA Administration Sodium Chloride 1,000 mls @ 100 mls/hr 04/18/20 23:10 04/19/20 09:24 Sodium Chloride 0.9% IV 100 mls/hr .Q10H DANISHA Administration Morphine Sulfate 4 mg 04/18/20 23:10 04/19/20 05:07 Morphine IVP 4 mg Q4H PRN Administration SEVERE PAIN Oxycodone/Acetaminophen 1 tab 04/18/20 23:10 04/19/20 09:18 Percocet 5-325 Mg PO 1 tab Q4H PRN Administration moderate to severe pain Pantoprazole Sodium 20 mg 04/19/20 09:00 04/19/20 09:20 Protonix PO 20 mg DAILY DANISHA Administration Senna/Docusate Sodium 2 tab 04/19/20 09:00 04/19/20 09:21 Senna-S PO Not Given BID DANISHA PFSH Acute PFSH: Medical History BPH without obstruction/lower urinary tract symptoms Hyperlipidemia Hypertension Recurrent kidney stones Renal and ureteric calculus Surgical History S/P trigger finger release Status post extracorporeal shock wave therapy WITH STENT PLACEMENTS X3 Family History Mother , at age 73 Leukemia Father , at age 78 Parkinsons Heart disease Other CAD (coronary artery disease) Cancer Dementia Social History (Updated 04/18/20 @ 21:39 by Mallory Valdez MD) Smoking and tobacco status: never smoked Alcohol intake: current Alcohol intake frequency: holidays/special occasions only Adopted: No Caregiver/support person: No Lives independently: No Household members: spouse Marital status: service: Yes status: Retired Current occupational status: disabled History of recent travel: No Dietary Habits: Current diet type/program: regular (does not eat a well balanced diet) Vitals/I&O/Wt Last Vital Signs Temp 98.2 F 04/19/20 11:09 Pulse 65 04/19/20 11:09 Resp 20 H 04/19/20 11:09 BP 132/84 04/19/20 11:09 Pulse Ox 90 04/19/20 09:05 04/18/20 04/19/20 04/19/20 22:59 06:59 14:59 Intake Total 1000 / 1000 936.667 / 936.667 Output Total 220 / 220 460 / 460 Balance 780 / 780 476.667 / 476.667 Weight last 48 hrs Weight 257 lb 4.8 oz Weight 247 lb Physical Exam Const: COMMON NORMALS: no acute distress, average body habitus, patient oriented x3 and alert GENERAL APPEARANCE: cooperative and comfortable ORIENTATION/CONSCIOUSNESS: Yes awake HENMT: COMMON NORMALS: normocephalic and atraumatic HEAD & SCALP: normocephalic and atraumatic Eye: GENERAL EYE: appearance normal, both eyes and all related structures Chest: COMMONS NORMALS: normal inspection of the chest Resp: COMMON NORMALS: normal respiratory effort EFFORT & INSPECTION: Yes able to speak in complete sentences and Yes symmetric chest movement Extremity: GENERAL: Yes normal exam except as noted LEFT LOWER EXTREMITY: Yes lower leg (The patient has a splint in place. This is not removed for evaluation.) Left lower leg: Yes inspection (There is no significant swelling about the toes.), Yes palpation (There is no tenderness to palpation of the toes. There is tenderness with any range of motion.) and Yes neurovascular exam (Intact distal to the fracture site with no evidence of compartment syndrome.) Neuro: COMMON NORMALS: patient oriented x3 SENSORIUM/ORIENTATION: Yes alert Psych: COMMON NORMALS: mental status grossly normal APPEARANCE: Yes grossly normal ATTITUDE: Yes calm and Yes engaged ATTENTION/CONCENTRATION: Yes attention grossly intact Skin: COMMON NORMALS: no rashes or lesions noted GENERAL SKIN EXAM: no rashes or lesions noted Urinary Catheter Management^: Mccann Latex: Cath Placed During This Visit: yes Reason for Continuing Indwelling Catheter: Perioperative Use in Selected Surgeries Urinary Catheter Date of Insertion: 04/19/20 Urinary Catheter Time of Insertion: 06:03 Data Imaging^: Xray Ortho: I personally reviewed and interpreted this imaging study as follows: My impression: I have personally reviewed the patient's left ankle films. There is a distal tibia fracture which has a spiral component to it. There is no obvious extension into the joint with the initial x-rays, however, there are a couple of radiolucencies of significant concern. There is also a fracture proximally involving the neck of the fibula. The spiral fracture goes quite high into the distal third of the tibia. Other CT: My impression: CT images are reviewed. There is evidence of intra-articular involvement in multiple places extending from the patient's distal tibial spiral fracture. There is a posterior malleolar fracture as well as an anterior tibial fracture. These fractures are nondisplaced. The ankle mortise appears intact. There is no significant displacement of these intra-articular fractures. A&P Assessment and plan (1) Displaced pilon fracture of left tibia, initial encounter for closed fracture: The patient presented with a distal tibia fracture and proximal fibular fracture, but CT scan demonstrates this fracture to also be a pilon fracture with intra-articular involvement and multiple fracture line extensions into the joint. Fortunately, there is no significant displacement of the fracture fragments which are into the joint. The distal tibia has a spiral fracture which extends quite proximally into the tibia. The plan is for fixation of this fracture utilizing a plate as it is felt that a gerson would displace the multiple distal fractures and not give them significant fixation. Status: Acute (2) Closed fracture of left fibula and tibia: The tib-fib fracture is spiral in nature involving the distal third of the tibia and the proximal fibula. Unfortunately, additionally, there is a pilon fracture which will require plating rather than gerson fixation of this fracture. Status: Acute Qualifiers: Encounter type: initial encounter Qualified Code(s): S82.202A - Unspecified fracture of shaft of left tibia, initial encounter for closed fracture; S82.402A - Unspecified fracture of shaft of left fibula, initial encounter for closed fracture Consult Attestations Medical Necessity Statement: Per medical service and to allow appropriate equipment to be obtained. 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
[2020-04-19] MEDS: CELEcoxib 200 mg Capsule 400 MG PO (12:51)
[2020-04-20] VITALS (23 sets, daily range): BP systolic 124–158; BP diastolic 66–97; PULSE 64–99; RESP 14–19; TEMP 36.4–37.1; O2SAT 93–99; BMI 33.0
--- NOTE | 2020-04-20 | SCC_ITS ---
Procedure Done: Open reduction internal fixation left distal tibial spiral fracture plus distal tibial pilon fracture utilizing the left 10 hole anterolateral Wright tibial plate 231.3 seconds of fluoroscopic guidance, for a cumulative dose of 7.45 mGy, was provided to Dr. Boateng by the radiology department. C-arm images of the LEFT ankle were saved for the patient's permanent record. MILLY
--- NOTE | 2020-04-20 | XR_ITS ---
WS: [id number] EXAM: FLUOROSCOPY FOR VISUALIZATION DURING LEFT LOWER EXTREMITY FRACTURE FIXATION DATE OF EXAMINATION: 04/20/2020, 1834 hours COMPARISON: Left ankle films from 04/18/2020. HISTORY: Patient is 64 years old with comminuted distal tibial fracture. FLUOROSCOPY TIME: 231.3 seconds. 4 spot images obtained. FINDINGS: Fluoroscopy provided to the orthopedic surgery service for visualization during open reduction international exchange coordinator al fixation of a comminuted distal left tibial fracture. Please see operative report for further deta ils. Dedicated post procedure imaging recommended. XR/XR ankle LT min 3V* [id number] IMPRESSION: Fluoroscopy provided to the orthopedic service for visualization during open re duction internal fixation comminuted distal left tibial fracture.
[2020-04-20] MEDS: oxyCODONE-APAP 5-325 mg Tablet 1 TAB PO ×3 (02:38→21:45)
[2020-04-20] MEDS: buPROPion XL (24 HR) 300 mg Tablet PO (05:07)
[2020-04-20] MEDS: aspirin 81 mg EC Tablet PO (08:10)
[2020-04-20] MEDS: atenolol 50 mg Tablet PO (08:10)
[2020-04-20] MEDS: atorvastatin 40 mg Tablet PO (08:10)
[2020-04-20] MEDS: pantoprazole DR 40 mg Tablet 20 MG PO (08:10)
[2020-04-20] MEDS: sodium chloride 0.9% 1,000 ML 100 ML IV (08:12)
[2020-04-20] MEDS: finasteride 5 mg Tablet PO (08:13)
[2020-04-20] MEDS: gabapentin 100 mg Capsule 200 MG PO ×2 (08:13→21:44)
[2020-04-20] MEDS: hydroCHLOROthiazide 25 mg Tablet PO (08:13)
[2020-04-20] MEDS: sennosides-docusate Tablet 2 TAB PO (08:14)
[2020-04-20 08:18] LABS: Glucose Point of Care 100 mg/dL (70-110)
--- NOTE | 2020-04-20 12:38 | P.ANESASSM_ITS ---
Pre-Anesthetic Assessment Pre-Anesthetic Assessment: Height/Weight: Height 1.88 m Weight 116.709 kg Temp Pulse Resp BP Pulse Ox 98.3 F 65 14 137/84 94 04/20/20 12:14 04/20/20 12:14 04/20/20 12:14 04/20/20 12:14 04/20/20 12:14 Preop Diagnosis: Distal tibia spiral fracture with pilon component left Proposed Procedure: Operation Date: 04/20/20 15:30 Proposed Procedures p ORIF Tibia/Fibula(Not Applicable) - Megan Boateng MD Familial anesthetic complications: None Was Beta Martha taken within 24 hours: Yes Last intake: NPO > 8 hrs, sips of water at 1230 Social: Social History: No alcohol and No tobacco Exam: Pre-Anes Outpt Exam: alert, oriented x 3, clear to auscultation bilaterally and regular rate & rhythm Airway: Cervical ROM: WNL MP: 3 Dentition: Chipped CV/HEM: CV/HEM: HTN : : Chronic renal Insufficiency GI: GI: GERD Metabolic: Metabolic: Hyperlipidemia Anesthetic Plan: ASA status: 2 Anesthesia: General Risk of > 500 ml blood loss (7ml/kg in children): No Meds/Allergies Current Medications: Current Medications Generic Name Dose Route Start Last Admin Trade Name Freq PRN Reason Stop Dose Admin Aspirin 81 mg 04/19/20 09:00 04/20/20 08:10 Aspirin Ec PO 81 mg DAILY DANISHA Administration Atenolol 50 mg 04/19/20 09:00 04/20/20 08:10 Tenormin PO 50 mg DAILY DANISHA Administration Atorvastatin Calci um 40 mg 04/19/20 09:00 04/20/20 08:10 Lipitor PO 40 mg DAILY DANISHA Administration Bupropion HCl 300 mg 04/19/20 06:00 04/20/20 05:07 Wellbutrin Xl (2 4 Hr) PO 300 mg QAM DANISHA Administration Finasteride 5 mg 04/19/20 09:00 04/20/20 08:13 Proscar PO 5 mg DAILY DANISHA Administration Gabapentin 200 mg 04/19/20 09:00 04/20/20 08:13 Neurontin PO 200 mg QID DANISHA Administration Hydrochlorothiazid e 25 mg 04/19/20 09:00 04/20/20 08:13 Hctz PO 25 mg DAILY DANISHA Administration Sodium Chloride 1,000 mls @ 100 m ls/hr 04/18/20 23:10 04/20/20 08:12 Sodium Chloride 0.9% IV 100 mls/hr .Q10H DANISHA Administration Morphine Sulfate 4 mg 04/18/20 23:10 04/19/20 05:07 Morphine IVP 4 mg Q4H PRN Administration SEVERE PAIN Oxycodone/Acetamin ophen 1 tab 04/18/20 23:10 04/20/20 09:58 Percocet 5-325 M g PO 1 tab Q4H PRN Administration moderate to sever e pain Pantoprazole Sodiu m 40 mg 04/20/20 09:00 04/20/20 09:09 Protonix PO Not Given DAILY DANISHA Senna/Docusate Sod ium 2 tab 04/19/20 09:00 04/20/20 08:14 Senna-S PO 2 tab BID DANISHA Administration PFSH Anesthesia PFSH: Medical History BPH without obstruction/lower urinary tract symptoms Hyperlipidemia Hypertension Recurrent kidney stones Renal and ureteric calculus Surgical History S/P trigger finger release Status post extracorporeal shock wave therapy WITH STENT PLACEMENTS X3 Family History Mother , at age 73 Leukemia Father , at age 78 Parkinsons Heart disease Other CAD (coronary artery disease) Cancer Dementia Social History (Updated 04/18/20 @ 21:39 by Mallory Valdez MD) Smoking and tobacco status: never smoked Alcohol intake: current Alcohol intake frequency: holidays/special occasions only Adopted: No Caregiver/support person: No Lives independently: No Household members: spouse Marital status: service: Yes status: Retired Current occupational status: disabled History of recent travel: No Data Anesthesia CBC & Chem 7: 04/19/20 05:10 04/19/20 05:10 Other Labs: Laboratory Results - last 48 hr 04/18/20 04/18/20 04/18/20 19:29 19:29 19:29 WBC 16.6 H RBC 5.06 Hgb 15.0 Hct 45.8 MCV 90.5 MCH 29.6 MCHC 32.8 RDW 12.5 Plt Count 239 MPV 9.7 Neut % (Auto) 83.3 Lymph % (Auto) 10.0 Gilchrist % (Auto) 5.3 Eos % (Auto) 0.4 Baso % (Auto) 0.4 Neut # (Auto) 13.78 H Lymph # (Auto) 1.7 Gilchrist # (Auto) 0.9 Eos # (Auto) 0.1 Baso # (Auto) 0.1 Nucleated RBC % (auto) 0 Nucleated RBCs # 0.0 PT 12.10 INR 0.87 Sodium 139 Potassium 3.6 Chloride 100 Carbon Dioxide 28 Anion Gap 14.6 BUN 18 Creatinine 1.3 H GFR Calculation 55.9 L Glucose 111 POC Glucose Calculated Osmolality 285 Calcium 9.2 Total Bilirubin 0.5 AST 20 ALT 25 Alkaline Phosphatase 91 Total Protein 7.4 Albumin 4.5 Globulin 2.9 Urine Color Urine Appearance Urine pH Ur Specific [place] Urine Protein Urine Glucose (UA) Urine Ketones Urine Blood Urine Nitrate Urine Bilirubin Urine Urobilinogen Ur Leukocyte Esterase SARS-CoV-2 Ag (Rapid) 04/18/20 04/19/20 04/19/20 21:47 01:38 05:10 WBC 9.6 RBC 4.51 Hgb 13.2 Hct 41.2 L MCV 91.4 MCH 29.3 MCHC 32.0 RDW 12.6 Plt Count 194 MPV 9.8 Neut % (Auto) 66.2 Lymph % (Auto) 23.4 Gilchrist % (Auto) 8.0 Eos % (Auto) 1.4 Baso % (Auto) 0.6 Neut # (Auto) 6.34 Lymph # (Auto) 2.2 Gilchrist # (Auto) 0.8 Eos # (Auto) 0.1 Baso # (Auto) 0.1 Nucleated RBC % (auto) 0 Nucleated RBCs # 0.0 PT INR Sodium Potassium Chloride Carbon Dioxide Anion Gap BUN Creatinine GFR Calculation Glucose POC Glucose Calculated Osmolality Calcium Total Bilirubin AST ALT Alkaline Phosphatase Total Protein Albumin Globulin Urine Color Yellow Urine Appearance Clear Urine pH 5 Ur Specific [place] 1.025 Urine Protein Neg Urine Glucose (UA) Norm Urine Ketones Negative Urine Blood Neg Urine Nitrate Negative Urine Bilirubin Neg Urine Urobilinogen Norm Ur Leukocyte Esterase Negative SARS-CoV-2 Ag (Rapid) Negative 04/19/20 04/20/20 05:10 08:08 WBC RBC Hgb Hct MCV MCH MCHC RDW Plt Count MPV Neut % (Auto) Lymph % (Auto) [place]christ % (Auto) Eos % (Auto) Baso % (Auto) Neut # (Auto) Lymph # (Auto) Gilchrist # (Auto) Eos # (Auto) Baso # (Auto) Nucleated RBC % (auto) Nucleated RBCs # PT INR Sodium 139 Potassium 3.3 L Chloride 103 Carbon Dioxide 27 Anion Gap 12.3 BUN 18 Creatinine 1.2 GFR Calculation 61.3 L Glucose 105 POC Glucose 100 Calculated Osmolality 285 Calcium 8.6 Total Bilirubin AST ALT Alkaline Phosphatase Total Protein Albumin Globulin Urine Color Urine Appearance Urine pH Ur Specific [place] Urine Protein Urine Glucose (UA) Urine Ketones Urine Blood Urine Nitrate Urine Bilirubin Urine Urobilinogen Ur Leukocyte Esterase SARS-CoV-2 Ag (Rapid) Cardiac Studies: No Data to Display
[2020-04-20 14:34] LABS: Basophils # 0.1 10^3/uL (0.0-0.1); Basophils % 0.9 %; Eosinophils # 0.2 10^3/uL (0.0-0.8); Hemoglobin 13.3 g/dL (11.7-16.6); Lymphocytes % 23.8 %; Mean Corpuscular HGB Conc 32.4 g/dL (30.0-36.0); Mean Corpuscular Volume 89.3 fL (80-94); Monocytes # 0.7 10^3/uL (0.2-0.9); Monocytes % 7.8 %; Neutrophils # 5.51 10^3/uL (1.8-7.7); Nucleated Red Blood Cells % 0 %; Platelet Count 208 10^3/cmm (130-400); Red Blood Count 4.59 10^6/uL (4.1-5.3); Red Cell Distribution Width 12.2 % (12.1-15.1); White Blood Count 8.5 10^3/uL (4.0-10.0)
[2020-04-20 14:49] LABS: Alanine Aminotransferase 17 U/L (0-41); Albumin Level 4.2 g/dL (3.5-5.2); Alkaline Phosphatase 105 IU/L (40-130); Anion Gap 11.5 (5-19); Aspartate Amino Transferase 16 U/L (0-40); Blood Urea Nitrogen 14 mg/dL (8-23); Calcium 8.6 mg/dL (8.5-10.5); Carbon Dioxide 29 mmol/L (22-29); Chloride 101 mmol/L (98-107); Globulin 2.7 g/dL (1.3-4.6); Glomerular Filtration Rate 75.7 mL/min (90-130); Glucose 98 mg/dL (65-115); Osmolality Calculated 282 mOsm/kg (285-295); Potassium 3.5 mmol/L (3.5-5.1); Sodium 138 mmol/L (136-145); Total Bilirubin 0.8 mg/dL (0.15-1.2); Total Protein 6.9 g/dL (6.6-8.7)
--- NOTE | 2020-04-20 15:46 | PM.PN ---
Subjective Subjective: Interval history: No acute events overnight. Vitals and labs have been stable. He is ready for surgery. Medications: Reviewed: Yes Vitals/I&O/Wt Last Vital Signs Temp 97.6 F 04/20/20 15:37 Pulse 68 04/20/20 15:37 Resp 18 04/20/20 15:37 BP 157/97 04/20/20 15:37 Pulse Ox 97 04/20/20 15:37 04/20/20 04/20/20 04/20/20 06:59 14:59 22:59 Intake Total 1480 / 3656.667 565 / 565 Output Total 1650 / 3110 Balance -170 / 546.667 565 / 565 Weight last 48 hrs Weight 257 lb 4.8 oz Weight 257 lb 4.8 oz Weight 247 lb Physical Exam Const: COMMON NORMALS: no acute distress, average body habitus, patient oriented x3 and alert GENERAL APPEARANCE: cooperative and comfortable ORIENTATION/CONSCIOUSNESS: Yes awake HENMT: COMMON NORMALS: normocephalic and atraumatic HEAD & SCALP: normocephalic and atraumatic Eye: GENERAL EYE: appearance normal, both eyes and all related structures Chest: COMMONS NORMALS: normal inspection of the chest Resp: COMMON NORMALS: normal respiratory effort EFFORT & INSPECTION: Yes able to speak in complete sentences and Yes symmetric chest movement Extremity: GENERAL: Yes normal exam except as noted LEFT LOWER EXTREMITY: Yes ankle joint Left ankle: Yes inspection (Swelling decreased), Yes palpation (Tender to palpation. Fracture is palpable), Yes ROM (Not assessed) and Yes neurovascular exam (intact) Neuro: COMMON NORMALS: patient oriented x3 SENSORIUM/ORIENTATION: Yes alert Psych: COMMON NORMALS: mental status grossly normal APPEARANCE: Yes grossly normal ATTITUDE: Yes calm and Yes engaged ATTENTION/CONCENTRATION: Yes attention grossly intact Skin: COMMON NORMALS: no rashes or lesions noted GENERAL SKIN EXAM: no rashes or lesions noted Urinary Catheter Management^: Mccann Latex: Cath Placed During This Visit: yes Reason for Continuing Indwelling Catheter: Required Immobilization for Trauma or Surgery or Anesthesia Urinary Catheter Date of Insertion: 04/19/20 Urinary Catheter Time of Insertion: 06:03 Data : 04/20/20 14:11 04/20/20 14:11 A&P Assessment and plan (1) Displaced pilon fracture of left tibia, initial encounter for closed fracture: The patient presented with a distal tibia fracture and proximal fibular fracture, but CT scan demonstrates this fracture to also be a pilon fracture with intra-articular involvement and multiple fracture line extensions into the joint. Fortunately, there is no significant displacement of the fracture fragments which are into the joint. The distal tibia has a spiral fracture which extends quite proximally into the tibia. The plan is for fixation of this fracture utilizing a plate as it is felt that a gerson would displace the multiple distal fractures and not give them significant fixation. This is planned for today. Risks and complications have been discussed. Status: Acute (2) Closed fracture of left fibula and tibia: The tib-fib fracture is spiral in nature involving the distal third of the tibia and the proximal fibula. Unfortunately, additionally, there is a pilon fracture which will require plating rather than gerson fixation of this fracture. Status: Acute Qualifiers: Encounter type: initial encounter Qualified Code(s): S82.202A - Unspecified fracture of shaft of left tibia, initial encounter for closed fracture; S82.402A - Unspecified fracture of shaft of left fibula, initial encounter for closed fracture Attestations Medical Necessity Statement*: Required for surgical intervention. 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
[2020-04-20] MEDS: sodium chloride 0.9% 1,000 ML 30 ML IV (15:53)
--- NOTE | 2020-04-20 17:45 | P.PN_ITS ---
Subjective Subjective: Interval history: No acute events overnight. Vitals and labs have been stable. Denies having nausea, vomiting, headache. Has remained comfortable. Vitals/I&O/Wt Last Vital Signs Temp 97.6 F 04/20/20 15:37 Pulse 68 04/20/20 15:37 Resp 18 04/20/20 15:37 BP 157/97 04/20/20 15:37 Pulse Ox 97 04/20/20 15:37 04/20/20 04/20/20 04/20/20 06:59 14:59 22:59 Intake Total 1480 / 3656.667 565 / 565 1150 / 1715 Output Total 1650 / 3110 Balance -170 / 546.667 565 / 565 1150 / 1715 Weight last 48 hrs Weight 116.709 kg Weight 116.709 kg Weight 112.037 kg Physical Exam Narrative: EXAM NARRATIVE: General: No acute distress, AO x3 HEENT: PERRLA, pupils bilaterally equal and reactive Chest: Normal vesicular breath sounds, no added sounds, equal good air entry bilaterally CVS: S1-S2 regular, no murmurs, no tachycardia, no gallops, no rubs Abdomen: Soft, nontender, no organomegaly, bowel sounds present Neuro: No focal deficits, no facial deformity, AO x3, power 5/5 in all limbs Extremities: Left leg bandaged, dry. Urinary Catheter Management^: Mccann Latex: Cath Placed During This Visit: yes Reason for Continuing Indwelling Catheter: Required Immobilization for Trauma or Surgery or Anesthesia Urinary Catheter Date of Insertion: 04/19/20 Urinary Catheter Time of Insertion: 06:03 Data : 04/20/20 14:11 04/20/20 14:11 A&P Assessment and plan (1) Displaced pilon fracture of left tibia, initial encounter for closed fracture: Status: Acute (2) Hypertension: Goal blood pressure less than 140/90 mmHg. Monitor vital signs Continue home medications of atenolol. Status: Chronic Qualifiers: Hypertension type: essential hypertension Qualified Code(s): I10 - Essential (primary) hypertension (3) Hyperlipidemia: -Resume statin Status: Chronic Qualifiers: Hyperlipidemia type: unspecified Qualified Code(s): E78.5 - Hyperlipidemia, unspecified (4) BPH without obstruction/lower urinary tract symptoms: -Resume finasteride Status: Acute Additional A&P Information Displaced fracture of left tibia: Physical therapy, anticoagulation, pain medication, perioperative antibiotics as per Dr. Boateng. Patient to undergo ORIF. -Chronic pain; resume pain meds -Morbid obesity: BMI-32 kg/m2 -LISA on CKD stage 2; baseline Cr around 1.1-1.2; -low salt diet after surgery., -GI ppx with PPI DVT prophylaxis as per surgical team. Attestations Medical Necessity Statement*: Left tibia fracture. Time Spent in Patient Care: Greater than 35 minutes Coding Level of Care Code Acute Food Services Manager for [facility] Fwd Diagnoses Displaced pilon fracture of left tibia, initial encounter for closed fracture S82.872A Hypertension I10 Hypertension type: essential hypertension Hyperlipidemia E78.5 Hyperlipidemia type: unspecified BPH without obstruction/lower urinary tract symptoms N40.0
[2020-04-20] MEDS: ceFAZolin 1,000 mg SDV 1000 MG IRRIGATION (18:39)
--- NOTE | 2020-04-20 19:15 | PM.OP ---
Operative Report Date of procedure: April 20, 2020 Pre-op Diagnosis: Distal tibia spiral shaft fracture with pilon component left Post-op diagnosis: same Post-op Findings: Severe comminution and displacement of a distal tibia shaft fracture which is spiral in addition to the comminuted pilon fracture of the left ankle. The deep peroneal nerve was trapped within the main fracture fragments of the tibial shaft. Procedure Done: Open reduction internal fixation left distal tibial spiral fracture plus open reduction internal fixation distal tibial pilon fracture utilizing the left 10 hole anterolateral Cyrus tibial plate Specimens removed/disposition: None Pathology: none sent Surgeon: Megan Boateng Client Care Coordinator: [facility] Anesthesia: General (Intubated, ASA 2) Estimated blood loss (mL): 50 Tourniquet time (min): 134 Tourniquet time: At 250 mmHg IV fluids (mL): 2,000 Urine output (mL): 200 Complications: None Findings: Comminuted left tibial distal third shaft fracture with associated comminuted left distal tibia pilon fracture Condition: stable Disposition: PACU (Then to floor for postoperative rehabilitation and pain management) Brief History: This 64-year-old gentleman presented to the emergency department after falling through [employer] and having the above injury. Upon initial evaluation, the patient was neurologically intact. His fracture was evaluated. Secondary to the severe comminution of the fracture, as well as the pilon component to the fracture, we were not able to proceed with typical intramedullary gerson for a tibial fracture. The patient was therefore scheduled for anterolateral tibial plating which would address both the tibial shaft fracture and the distal pilon fracture. Secondary to the length of the fracture, it was felt that this would either require a 10 or 12 hole Alvin anterolateral plate, and although we had the 10 hole here at the hospital, the 12 hole had to be ordered and from [facility]. Therefore, the patient surgery was delayed to allow appropriate hardware to be obtained. Procedure: Patient was seen in the preoperative holding area and the leg was marked. Patient was brought to the operating theater and placed on the operating room table. After undergoing adequate general intubated anesthesia, ASA 2, the patient's left lower extremity was prepped and draped in usual fashion utilizing DuraPrep. The leg was draped free. Fluoroscopy was used throughout the surgical procedure. We did have a tourniquet high on the left lower extremity. This was elevated to 250 mmHg and total tourniquet time was 134 minutes. Tourniquet elevation followed exsanguination of the leg. A surgical pause was performed. At the time of the surgical pause we identified the site and side of surgery as well as the patient's identity and availability of equipment. We also confirmed appropriate administration of IV antibiotics. Following the above, an incision was made centering over the patient's left distal tibia fracture. The incision began proximal to the patient's comminuted distal tibial shaft fracture. Fluoroscopy was used to determine the appropriate length of the incision and length of the plate to allow us to have 3 holes in the plate for appropriate fixation above fracture. The incision was continued slightly lateral to the tibial crest, and it was continued from above the fracture across the ankle and contoured toward the fourth metatarsal. The skin was incised, and soft tissues were dissected using blunt dissection. We evaluated the distal tibia shaft fracture which was comminuted. Upon evaluation of this, the deep peroneal nerve was found impaled within the fracture fragments. This was gently removed and relocated. The nerve was evaluated and was found to demonstrate some evidence of compression, however, it was intact in its path. Once the nerve was removed, attention was directed to the reduction of the fracture, and we were able to reduce the fracture nearly anatomically. This was held with a clamp and the appropriate 10 hole plate was lined up into position. Additionally, the superficial peroneal nerve was identified and protected throughout the surgical procedure as well. Dissection through the ankle retinaculum was carefully accomplished as well. Soft tissues were elevated off the anterior aspect of the distal tibia. Of note, there was a pilon component and a clamp was placed from medial to lateral across the very distal tibia to hold this in a reduced position while the plate was placed in appropriate position as confirmed by fluoroscopy. This clamp did afford good reduction of the fracture line visible in the anterior posterior x-ray. We then evaluated the lateral, and the anterior and posterior malleolar fractures remained in good position as well. Adjustments were made to the 10 hole plate to get it as distal as possible and to allow fixation of the anterior and posterior tibial fragments as well as assuring that we had adequate fixation both medial and lateral to the main intra-articular extension of the fracture visualized in the AP plane. Once we were satisfied that the plate was in good position. It was attached with a K wire. Attention was then directed toward permanent attachment of this 10 hole anterolateral tibial plate. A combination of locking and nonlocking screws were used throughout the plate. Care was taken to assure that we had adequate fixation of all the fracture fragments including the proximal aspect of the tibial shaft fracture, and also, that we crossed appropriately in the distal tibia to address the pilon fracture. Care was taken to assure that we did not violate the distal joint. Once the plate was attached proximally to address the midshaft to distal tibia fracture, and distally to address the pilon component of the fracture, evaluation of soft tissues was once again accomplished. Both the superficial and deep peroneal nerves remained in their normal location without further evidence of trauma. At the conclusion we obtained AP and lateral images demonstrating the fracture was nearly anatomically reduced. The incision was closed with 2-0 Monocryl in the subcutaneous tissues. The skin was then closed with skin shaggy. Sterile dressing was placed consisting of Xeroform gauze, 4 x 4's, sterile soft roll and an Talib wrap. The patient was placed in a Cam Walker boot and is to remain nonweightbearing. The procedure was well tolerated without complication. Tourniquet time was 134 minutes at 250 mmHg. The patient will be discharged home to follow-up in my office as scheduled. Associated Problem List Diagnoses (1) Displaced pilon fracture of left tibia, initial encounter for closed fracture: (2) Closed fracture of left fibula and tibia: Qualifiers: Encounter type: initial encounter Qualified Code(s): S82.202A - Unspecified fracture of shaft of left tibia, initial encounter for closed fracture; S82.402A - Unspecified fracture of shaft of left fibula, initial encounter for closed fracture
[2020-04-21] VITALS (14 sets, daily range): BP systolic 128–150; BP diastolic 78–87; PULSE 66–97; RESP 16–20; TEMP 36.7–37.1; O2SAT 94–98
[2020-04-21] MEDS: acetaminophen 500 mg Tablet 1000 MG PO ×3 (00:16→22:26)
[2020-04-21] MEDS: oxyCODONE-APAP 5-325 mg Tablet 1 TAB PO (01:53)
[2020-04-21 05:45] LABS: Basophils % 0.1 %; Hematocrit 38.5 % (42.0-52.0); Hemoglobin 12.7 g/dL (11.7-16.6); Lymphocytes # 1.1 10^3/uL (0.8-4.8); Lymphocytes % 7.9 %; Mean Corpuscular Hemoglobin 29.5 pg (28.0-34.0); Mean Corpuscular Volume 89.3 fL (80-94); Mean Platelet Volume 10.4 fL (7.4-10.4); Monocytes # 0.9 10^3/uL (0.2-0.9); Monocytes % 6.3 %; Neutrophils % 85.3 %; Nucleated Red Blood Cells % 0 %; Platelet Count 225 10^3/cmm (130-400); Red Blood Count 4.31 10^6/uL (4.1-5.3); Red Cell Distribution Width 12.1 % (12.1-15.1); White Blood Count 13.6 10^3/uL (4.0-10.0)
[2020-04-21 06:20] LABS: Alanine Aminotransferase 15 U/L (0-41); Albumin Level 3.9 g/dL (3.5-5.2); Alkaline Phosphatase 96 IU/L (40-130); Anion Gap 14.8 (5-19); Aspartate Amino Transferase 18 U/L (0-40); Blood Urea Nitrogen 16 mg/dL (8-23); Calcium 8.4 mg/dL (8.5-10.5); Carbon Dioxide 24 mmol/L (22-29); Chloride 101 mmol/L (98-107); Globulin 2.7 g/dL (1.3-4.6); Glomerular Filtration Rate 85.5 mL/min (90-130); Glucose 136 mg/dL (65-115); Osmolality Calculated 280 mOsm/kg (285-295); Potassium 3.8 mmol/L (3.5-5.1); Sodium 136 mmol/L (136-145); Total Bilirubin 0.5 mg/dL (0.15-1.2); Total Protein 6.6 g/dL (6.6-8.7)
[2020-04-21] MEDS: buPROPion XL (24 HR) 300 mg Tablet PO (06:34)
[2020-04-21] MEDS: finasteride 5 mg Tablet PO (08:30)
[2020-04-21] MEDS: hydroCHLOROthiazide 25 mg Tablet PO (08:30)
[2020-04-21] MEDS: aspirin 325 mg EC Tablet PO (08:31)
[2020-04-21] MEDS: pantoprazole DR 40 mg Tablet PO (08:31)
[2020-04-21] MEDS: gabapentin 100 mg Capsule 200 MG PO ×4 (08:31→22:26)
[2020-04-21] MEDS: CELEcoxib 200 mg Capsule PO ×2 (08:31→16:25)
[2020-04-21] MEDS: atenolol 50 mg Tablet PO (08:31)
[2020-04-21] MEDS: atorvastatin 40 mg Tablet PO (08:31)
[2020-04-21] MEDS: sennosides-docusate Tablet 2 TAB PO ×2 (08:31→16:25)
--- NOTE | 2020-04-21 08:50 | PC.SOCIAL ---
IMM Page 2 IMM explained to patient. Initialed, dated, and timed and placed in chart. Copy provided to patient.
[2020-04-21] MEDS: oxyCODONE 5 mg IR Tab/Cap PO ×2 (10:06→14:28)
--- NOTE | 2020-04-21 11:23 | P.PN_ITS ---
Subjective Subjective: Interval history: No acute events overnight. Vitals and labs have been stable. In last 24 hours patient underwent ORIF yesterday. He tolerated procedure well. Worked well with physical therapy today. Denies having nausea, vomiting, headache. Medications: Reviewed: Yes Vitals/I&O/Wt Last Vital Signs Temp 98.3 F 04/21/20 10:45 Pulse 66 04/21/20 10:45 Resp 18 04/21/20 10:45 BP 130/81 04/21/20 10:45 Pulse Ox 98 04/21/20 10:45 04/20/20 04/21/20 04/21/20 22:59 06:59 14:59 Intake Total 2150 / 2715 50 / 2765 360 / 360 Output Total 250 / 250 1525 / 1775 Balance 1900 / 2465 -1475 / 990 360 / 360 Weight last 48 hrs Weight 114.362 kg Weight 116.709 kg Physical Exam Narrative: EXAM NARRATIVE: General: No acute distress, AO x3 HEENT: PERRLA, pupils bilaterally equal and reactive Chest: Normal vesicular breath sounds, no added sounds, equal good air entry bilaterally CVS: S1-S2 regular, no murmurs, no tachycardia, no gallops, no rubs Abdomen: Soft, nontender, no organomegaly, bowel sounds present Neuro: No focal deficits, no facial deformity, AO x3, power 5/5 in all limbs Extremities: Left leg surgically bandaged, dry, peripheral pulses present, toes have good capillary refill. Urinary Catheter Management^: Mccann Latex: Cath Placed During This Visit: yes, but has since been removed by the nurse Reason for Continuing Indwelling Catheter: Decision to DC Catheter Urinary Catheter Date of Insertion: 04/19/20 Urinary Catheter Time of Insertion: 06:03 Date Urinary Catheter Removed: 04/21/20 Time Urinary Catheter Discontinued: 06:40 Data : 04/21/20 04:33 04/21/20 04:33 A&P Assessment and plan (1) Displaced pilon fracture of left tibia, initial encounter for closed fracture: Status: Acute (2) Hypertension: Goal blood pressure less than 140/90 mmHg. Monitor vital signs Continue home medications of atenolol, HCTZ. Status: Chronic Qualifiers: Hypertension type: essential hypertension Qualified Code(s): I10 - Ess ential (primary) hypertension (3) Hyperlipidemia: -Resume statin Status: Chronic Qualifiers: Hyperlipidemia type: unspecified Qualified Code(s): E78.5 - Hyperlipidemia, unspecified (4) BPH without obstruction/lower urinary tract symptoms: -Resume finasteride Status: Acute Additional A&P Information Displaced fracture of left tibia: Post-ORIF day 1. Continue physical therapy. Celecoxib and oxycodone IR as needed for pain. Aspirin 325 mg daily. Will monitor hemoglobin levels. Stable for now. Continue chronic medications like bupropion, atorvastatin, finasteride, gabapentin. -Morbid obesity: BMI-32 kg/m2 -LISA on CKD stage 2; baseline Cr around 1.1-1.2; Low-salt regular diet. Protonix for PD prophylaxis. Plan to discharge tomorrow with home health after monitoring for 24 hours and further physical therapy. Attestations Medical Necessity Statement*: Postop care for ORIF. Time Spent in Patient Care: Greater than 35 minutes (>than 50% of time spent in counselling and/or direct pt care on unit) . Coding Level of Care Code Acute Proteomics Scientist for [facility] Diagnoses Displaced pilon fracture of left tibia, initial encounter for closed fracture S82.872A Hypertension I10 Hypertension type: essential hypertension Hyperlipidemia E78.5 Hyperlipidemia type: unspecified BPH without obstruction/lower urinary tract symptoms N40.0
--- NOTE | 2020-04-21 12:58 | ANE.PACU2 ---
Inpatient post-anesthesia follow up: Airway intact: Yes Vital signs: Temperature 98.3 F Pulse Rate [Right] 70 Pulse Rate 66 Respiratory Rate 18 Blood Pressure [Ri ght Arm] 142/78 Blood Pressure 130/81 Pulse Oximetry 98 Oxygen Delivery Me thod [ Room Air Current Rate & Del anna] Oxygen Delivery Me thod Room Air Oxygen Flow Rate 2 Fraction of Inspir ed Oxygen Hydration adequate: Yes Nausea and vomiting: No Pain level: 4 Mental status: Baseline
--- NOTE | 2020-04-21 18:07 | PC.NURSE ---
SHIFT SUMMARY PATIENT HAS DONE WELL TODAY. PAIN WELL CONTROLLED. WORKED WELL WITH PHYSICAL THERAPY. GOOD URINE OUTPUT. DR. ONTIVEROS REMOVED PATIENT'S SURGICAL DRESSING. THIS NURSE DRESSED INCISION WITH 2 ISLAND DRESSINGS AND WRAPPED WITH JACKY WRAP. PATIENT IS TO BE IN BOOT WHEN UP AN AMBULATING, BUT MAY LEAVE OFF WHILE RESTING IN BED. NO COMPLAINTS AT THIS TIME.
--- NOTE | 2020-04-21 20:38 | PM.PN ---
Subjective Subjective: Interval history: Patient underwent ORIF left distal tibia yesterday. He tolerated procedure well. He worked well with physical therapy today. Wording to the hospitalist team, they would like to keep him an additional day secondary to an elevated white count. Medications: Reviewed: Yes Vitals/I&O/Wt Last Vital Signs Temp 98.3 F 04/21/20 16:00 Pulse 78 04/21/20 16:00 Resp 16 04/21/20 16:00 BP 130/81 04/21/20 16:00 Pulse Ox 96 04/21/20 16:00 04/21/20 04/21/20 04/21/20 06:59 14:59 22:59 Intake Total 50 / 2765 650 / 650 240 / 890 Output Total 1525 / 1775 200 / 200 750 / 950 Balance -1475 / 990 450 / 450 -510 / -60 Weight last 48 hrs Weight 252 lb 2 oz Weight 257 lb 4.8 oz Physical Exam Const: COMMON NORMALS: no acute distress, average body habitus, patient oriented x3 and alert GENERAL APPEARANCE: cooperative and comfortable ORIENTATION/CONSCIOUSNESS: Yes awake HENMT: COMMON NORMALS: normocephalic and atraumatic HEAD & SCALP: normocephalic and atraumatic Eye: GENERAL EYE: appearance normal, both eyes and all related structures Chest: COMMONS NORMALS: normal inspection of the chest Resp: COMMON NORMALS: normal respiratory effort EFFORT & INSPECTION: Yes able to speak in complete sentences and Yes symmetric chest movement Extremity: GENERAL: Yes normal exam except as noted LEFT LOWER EXTREMITY: Yes lower leg (Dressing is removed. Wound is benign. There is minimal increased swelling. There is no drainage or bleeding from the wound. Gerber are intact.) Left lower leg: Yes inspection (There is no evidence of complication. The patient appears comfortable moving his leg.), Yes palpation (There is some tenderness to palpation.) and Yes neurovascular exam (Patient is neurologically intact.) Neuro: COMMON NORMALS: patient oriented x3 SENSORIUM/ORIENTATION: Yes alert Psych: COMMON NORMALS: mental status grossly normal APPEARANCE: Yes grossly normal ATTITUDE: Yes calm and Yes engaged ATTENTION/CONCENTRATION: Yes attention grossly intact Skin: COMMON NORMALS: no rashes or lesions noted GENERAL SKIN EXAM: no rashes or lesions noted Urinary Catheter Management^: Mccann Latex: Cath Placed During This Visit: yes, but has since been removed by the nurse Reason for Continuing Indwelling Catheter: Decision to DC Catheter Urinary Catheter Date of Insertion: 04/19/20 Urinary Catheter Time of Insertion: 06:03 Date Urinary Catheter Removed: 04/21/20 Time Urinary Catheter Discontinued: 06:40 Data : 04/21/20 04:33 04/21/20 04:33 A&P Assessment and plan (1) Displaced pilon fracture of left tibia, initial encounter for closed fracture: The patient presented with a distal tibia fracture and proximal fibular fracture, but CT scan demonstrates this fracture to also be a pilon fracture with intra-articular involvement and multiple fracture line extensions into the joint. Patient underwent open reduction internal fixation uneventfully. This involved a very long tibial plate along the anterior lateral portion. Today, he is seen, and he is neurologically intact in spite of the deep peroneal nerve having been trapped in the fracture at the time of treatment. This was removed and appears to be functioning normally. Status: Acute (2) Closed fracture of left fibula and tibia: The tib-fib fracture is spiral in nature involving the distal third of the tibia and the proximal fibula. Unfortunately, additionally, there is a pilon fracture which will require plating rather than gerson fixation of this fracture. Status: Acute Qualifiers: Encounter type: initial encounter Qualified Code(s): S82.202A - Unspecified fracture of shaft of left tibia, initial encounter for closed fracture; S82.402A - Unspecified fracture of shaft of left fibula, initial encounter for closed fracture Attestations Medical Necessity Statement*: Patient is maintained in the hospital 1 additional day secondary to elevated white count. Coding Level of Care Code Acute [place] Attendant for [facility] Fwd Diagnoses Displaced pilon fracture of left tibia, initial encounter for closed fracture S82.872A Closed fracture of left fibula and tibia S82.202A; S82.402A Encounter type: initial encounter
[2020-04-22] VITALS: BP 165/85; PULSE 71; RESP 20; TEMP 36.6; O2SAT 98
[2020-04-22 02:24] LABS: Basophils # 0.1 10^3/uL (0.0-0.1); Basophils % 0.7 %; Eosinophils # 0.2 10^3/uL (0.0-0.8); Eosinophils % 1.7 %; Hemoglobin 12.4 g/dL (11.7-16.6); Lymphocytes # 2.6 10^3/uL (0.8-4.8); Lymphocytes % 22.5 %; Mean Corpuscular HGB Conc 32.6 g/dL (30.0-36.0); Mean Corpuscular Hemoglobin 29.2 pg (28.0-34.0); Mean Corpuscular Volume 89.6 fL (80-94); Mean Platelet Volume 10.1 fL (7.4-10.4); Monocytes % 8.6 %; Neutrophils # 7.76 10^3/uL (1.8-7.7); Neutrophils % 66.1 %; Nucleated Red Blood Cells % 0 %; Platelet Count 214 10^3/cmm (130-400); Red Blood Count 4.24 10^6/uL (4.1-5.3); Red Cell Distribution Width 12.3 % (12.1-15.1); White Blood Count 11.7 10^3/uL (4.0-10.0)
[2020-04-22 04:00] VITALS: BP 160/91; PULSE 74; RESP 20; TEMP 36.6; O2SAT 97
[2020-04-22] MEDS: buPROPion XL (24 HR) 300 mg Tablet PO (06:10)
[2020-04-22] MEDS: acetaminophen 500 mg Tablet 1000 MG PO ×2 (06:10→15:03)
[2020-04-22 07:43] VITALS: BP 120/78; PULSE 78; RESP 18; TEMP 36.3; O2SAT 95
[2020-04-22] MEDS: atorvastatin 40 mg Tablet PO (08:43)
[2020-04-22] MEDS: finasteride 5 mg Tablet PO (08:43)
[2020-04-22] MEDS: aspirin 325 mg EC Tablet PO (08:43)
[2020-04-22] MEDS: gabapentin 100 mg Capsule 200 MG PO ×2 (08:43→12:38)
[2020-04-22] MEDS: sennosides-docusate Tablet 2 TAB PO (08:43)
[2020-04-22] MEDS: atenolol 50 mg Tablet PO (08:43)
[2020-04-22] MEDS: hydroCHLOROthiazide 25 mg Tablet PO (08:43)
[2020-04-22] MEDS: CELEcoxib 200 mg Capsule PO (08:44)
[2020-04-22] MEDS: pantoprazole DR 40 mg Tablet PO (08:44)
--- NOTE | 2020-04-22 10:02 | P.DS_ITS ---
Discharge Providers Date of Admission: 04/18/20 21:21 Date of Discharge: April 22, 2020 Attending Provider at Admission: Mallory Valdez MD Attending Provider at Discharge: Bereket Ernandez MD Consults: Ortho: Dr. Boateng Primary Care Provider: Rajiv Cruz Diagnoses at Discharge Discharge Diagnosis (1) Displaced pilon fracture of left tibia, initial encounter for closed fracture: Status: Acute (2) Closed fracture of left fibula and tibia: Status: Acute Qualifiers: Encounter type: initial encounter Qualified Code(s): S82.202A - Unspecified fracture of shaft of left tibia, initial encounter for closed fracture; S82.402A - Unspecified fracture of shaft of left fibula, initial encounter for closed fracture Reason for Visit Reason for Visit: FALL WITH LEG DEFORMITY Hospital Course Discharge Summary: Julio Peña is a 64 year old male with PMHx of hypertension, hyperlipidemia, claustrophobia presents with complaints of left ankle pain, inability to weight-bear since a fall earlier today. He states that they are in the process of renovating his fireplace and what he thought was a concrete floor turned out to be sheetrock and upon stepping on this had his foot caught following which he had immediate severe pain in his left ankle and inability to weight-bear. He is currently in the process of being splinted and is quite uncomfortable during the process. Imaging confirms a left tibia and fibula fracture. Additional work-up shows leukocytosis with a white count of 16.6, otherwise normal CBC, normal electrolytes, BUN of 18, creatinine of 1.3, normal coags. Vital signs are stable, he is currently afebrile and on room air. Patient was admitted to the hospital and orthopedics was consulted. Once proper equipment were available patient underwent ORIF. He tolerated the procedure well and his hospital stay remained unremarkable. He worked well with physical therapy. He is been discharged to home with home health for further rehabilitation in hemodynamically stable condition with advised to follow-up with his primary care provider and orthopedics on the set appointment dates. For further rehabilitation shower chair and walker has been provided to the patient. Physical Exam Narrative: EXAM NARRATIVE: General: No acute distress, AO x3 HEENT: PERRLA, pupils bilaterally equal and reactive Chest: Normal vesicular breath sounds, no added sounds, equal good air entry bilaterally CVS: S1-S2 regular, no murmurs, no tachycardia, no gallops, no rubs Abdomen: Soft, nontender, no organomegaly, bowel sounds present Neuro: No focal deficits, no facial deformity, AO x3, power 5/5 in all limbs Extremities: Left leg surgically bandaged, dry, peripheral pulses present, toes have good capillary refill. Urinary Catheter Management^: Mccann Latex: Cath Placed During This Visit: yes, but has since been removed by the nurse Reason for Continuing Indwelling Catheter: Decision to DC Catheter Urinary Catheter Date of Insertion: 04/19/20 Urinary Catheter Time of Insertion: 06:03 Date Urinary Catheter Removed: 04/21/20 Time Urinary Catheter Discontinued: 06:40 Discharge Data Data Completed and Pending: Completed Studies During Hospitalization Category Date Time Status CT lower leg LT w o con* [id number] Stat Cat Scan 04/18/20 19:13 Completed XR ankle LT 2V 73 600 Stat Exams 04/18/20 18:11 Completed XR ankle LT min 3 V* [id number] Routine Exams 04/20/20 Completed XR foot LT 2V 736 20 Stat Exams 04/18/20 18:10 Completed XR knee LT 3V* 73 562 Stat Exams 04/18/20 18:10 Completed XR tibia fibula L T 2V 29793 Stat Exams 04/18/20 18:10 Completed Labs from last 24 hours 04/22/20 02:08 WBC 11.7 H RBC 4.24 Hgb 12.4 Hct 38.0 L MCV 89.6 MCH 29.2 MCHC 32.6 RDW 12.3 Plt Count 214 MPV 10.1 Neut % (Auto) 66.1 Lymph % (Auto) 22.5 Beauregard % (Auto) 8.6 Eos % (Auto) 1.7 Baso % (Auto) 0.7 Neut # (Auto) 7.76 H Lymph # (Auto) 2.6 Beauregard # (Auto) 1.0 H Eos # (Auto) 0.2 Baso # (Auto) 0.1 Nucleated RBC % (a uto) 0 Nucleated RBCs # 0.0 Vitals: Last Vital Signs Temp 97.3 F L 04/22/20 07:43 Pulse 78 04/22/20 07:43 Resp 18 04/22/20 07:43 BP 120/78 04/22/20 07:43 Pulse Ox 95 04/22/20 07:43 Discharge Plan Discharge Patient Disposition: Home Health Service Condition: Stable Prescriptions: New celecoxib 200 mg Capsule 200 mg PO BID Qty: 30 RF: 0 sennosides-docusate sodium 8.6-50 mg Tablet 2 tab PO BID Qty: 30 RF: 0 aspirin 325 mg Tablet,Delayed Release (Dr/Ec) 325 mg PO DAILY Qty: 30 RF: 0 acetaminophen 500 mg Tablet 1,000 mg PO Q8H 15 Days Qty: 90 RF: 0 oxycodone 5 mg Tablet 5 mg PO Q4H PRN (Reason: Moderate To Severe Pain) Qty: 30 RF: 0 Continued hydrochlorothiazide 25 mg tablet 25 mg PO DAILY RF: 0 bupropion HCl [Wellbutrin XL] 300 mg tablet extended release 24 hr 300 mg PO QAM RF: 0 atorvastatin 40 mg tablet 40 mg PO DAILY RF: 0 methocarbamol 750 mg tablet 750 mg PO DAILY RF: 0 finasteride 5 mg tablet 5 mg PO DAILY RF: 0 gabapentin 100 mg capsule 200 mg PO QID RF: 0 cyclobenzaprine 10 mg tablet 10 mg PO .prn RF: 0 psyllium seed (sugar) Powder 1 tbsp PO DAILY RF: 0 atenolol 100 mg tablet See Rx Instructions PO DAILY RF: 0 fluticasone propionate [Allergy Relief (fluticasone)] 50 mcg/actuation spray,suspension 1 spray INTRANASAL .prn RF: 0 pantoprazole 20 mg Tablet,Delayed Release (Dr/Ec) 20 mg PO DAILY RF: 0 ProAir HFA 90 mcg/actuation Hfa Aerosol Inhaler 2 puff INHALATION 6XD PRN (Reason: Shortness Of Breath) RF: 0 Changed ibuprofen 200 mg Capsule 200 - 800 mg PO DAILY PRN (Reason: pain) Qty: 0 RF: 0 Discontinued acetaminophen [Tylenol] 325 mg tablet 325 mg PO QID PRN (Reason: PAIN/FEVER) RF: 0 aspirin [Aspirin Low Dose] 81 mg Tablet,Delayed Release (Dr/Ec) 81 mg PO DAILY RF: 0 Discharge Orders: Discharge Order (Routine); Ordered 04/22/20 Ordered By: Bereket Ernandez Other Ambulatory Orders: DME: Shower Chair (Order) Location: None Selected Ordered By: Bereket Ernandez DME: Walker (Order) Location: None Selected Ordered By: Megan Boateng Referrals: [facility] [place] [Outside] [facility] [Outside] Megan Boateng MD [Physician] - 05/08/20 10:00 am (You have an appointment at Dr. Boateng's office on May 08 at 10:00am) Rajiv Cruz [Primary Care Provider] - 04/30/20 2:00 pm (You have an appointment with Braden Purdy on April 30 at 2:00pm in [facility]) Discharge Diet: Regular and Cardiac Discharge Activity: Increase activity as tolerated and As per PT/OT instructions Patient Instructions: Aspirin (By mouth), Laxative, Stimulant (By mouth), Ce lecoxib (By mouth), Oxycodone, Slow Release (By mouth), Fractures, Hypertension, Leg Fracture (DC) Discharge Attestations Time Spent in Discharge Care*: greater than 30 min Specific Discharge Activities: Specific discharge activities: educating patient, discussing with pcp/other providers, discussing with vocational case manager/social workers/dc planners, documenting/other paperwork and evaluating patient/reviewing data Status at Discharge: Cognitive status at discharge: cognitively intact , Behavioral status at discharge: cooperative , Functional status at discharge: uses cane/walker Overall status at discharge: patient is progressing back to baseline Quality Metrics Clinical Quality Measures During this hospital stay, did patient experience: None Coding Level of Care Code Acute Termite Helper for Zuleyka Fwd Diagnoses Displaced pilon fracture of left tibia, initial encounter for closed fracture S82.872A Closed fracture of left fibula and tibia S82.202A; S82.402A Encounter type: initial encounter
--- NOTE | 2020-04-22 10:13 | PC.NURSE ---
DRESSING CHANGE THIS NURSE REMOVED PATIENT'S SURGICAL DRESSING AND APPLIED [place] DRESSINGS AND JACKY WRAP.
[2020-04-22 11:05] VITALS: BP 132/85; PULSE 68; RESP 18; TEMP 36.8; O2SAT 98
--- NOTE | 2020-04-22 13:30 | PM.PN ---
Subjective Subjective: Interval history: Patient underwent ORIF left distal tibia. He tolerated this well, and he worked with physical therapy well. Postoperatively, he had an elevated white count and was maintained in hospital for further observation. This is now resolving and the patient will be discharged home with home health. Medications: Reviewed: Yes Vitals/I&O/Wt Last Vital Signs Temp 98.3 F 04/22/20 11:05 Pulse 68 04/22/20 11:05 Resp 18 04/22/20 11:05 BP 132/85 04/22/20 11:05 Pulse Ox 98 04/22/20 11:05 04/21/20 04/22/20 04/22/20 22:59 06:59 14:59 Intake Total 240 / 890 500 / 500 Output Total 950 / 1150 800 / 1950 Balance -710 / -260 -800 / -1060 500 / 500 Weight last 48 hrs Weight 256 lb 3.2 oz Weight 252 lb 2 oz Physical Exam Const: COMMON NORMALS: no acute distress, average body habitus, patient oriented x3 and alert GENERAL APPEARANCE: cooperative and comfortable ORIENTATION/CONSCIOUSNESS: Yes awake HENMT: COMMON NORMALS: normocephalic and atraumatic HEAD & SCALP: normocephalic and atraumatic Eye: GENERAL EYE: appearance normal, both eyes and all related structures Chest: COMMONS NORMALS: normal inspection of the chest Resp: COMMON NORMALS: normal respiratory effort EFFORT & INSPECTION: Yes able to speak in complete sentences and Yes symmetric chest movement Extremity: GENERAL: Yes normal exam except as noted LEFT LOWER EXTREMITY: Yes lower leg (Wound is benign. The patient remains neurologically intact. His boot is in place.) Neuro: COMMON NORMALS: patient oriented x3 SENSORIUM/ORIENTATION: Yes alert Psych: COMMON NORMALS: mental status grossly normal APPEARANCE: Yes grossly normal ATTITUDE: Yes calm and Yes engaged ATTENTION/CONCENTRATION: Yes attention grossly intact Skin: COMMON NORMALS: no rashes or lesions noted GENERAL SKIN EXAM: no rashes or lesions noted Urinary Catheter Management^: Mccann Latex: Cath Placed During This Visit: yes, but has since been removed by the nurse Reason for Continuing Indwelling Catheter: Decision to DC Catheter Urinary Catheter Date of Insertion: 04/19/20 Urinary Catheter Time of Insertion: 06:03 Date Urinary Catheter Removed: 04/21/20 Time Urinary Catheter Discontinued: 06:40 Data : 04/22/20 02:08 09/15/20 04:33 A&P Assessment and plan (1) Displaced pilon fracture of left tibia, initial encounter for closed fracture: Patient is doing well. His wound is benign. There is no drainage. He is moving his leg and is independent with therapy. He is ready for discharge to home. This is been approved by the medical service as well. He will follow-up with me in 3 to 4 weeks. He will need to see my nursing staff in approximately 2 weeks for staple removal. Status: Acute (2) Closed fracture of left fibula and tibia: The tib-fib fracture is spiral in nature involving the distal third of the tibia and the proximal fibula. Unfortunately, additionally, there is a pilon fracture which will require plating rather than gerson fixation of this fracture. Status: Acute Qualifiers: Encounter type: initial encounter Qualified Code(s): S82.202A - Unspecified fracture of shaft of left tibia, initial encounter for closed fracture; S82.402A - Unspecified fracture of shaft of left fibula, initial encounter for closed fracture Attestations Medical Necessity Statement*: Patient is now ready for discharge to home. Coding Level of Care Code Acute Assistant Signal Maintainer for Zuleyka Jeff Diagnoses Displaced pilon fracture of left tibia, initial encounter for closed fracture S82.872A Closed fracture of left fibula and tibia S82.202A; S82.402A Encounter type: initial encounter
[2020-04-22 16:35] VITALS: BP 132/85; PULSE 68; RESP 18; TEMP 36.8; O2SAT 98
== END 2020-04-22 16:35 | disposition home health service (06) | DRG 493 ==
LOC: ER 21:28 → MEDSURG 22:00
PROVIDERS: Specialist; Admitting Provider Family Medicine; Emergency Provider Emergency Medicine; PCP Family Medicine; Visit Provider Student in an Organized Health Care Education/Training Program
PROC: 0QSK04Z Reposition Left Fibula with Internal Fixation Device, Open Approach (ICD-10-PCS; CPT 27828; principal; 2020-04-20 15:30)
DX: S82.242A Displaced spiral fracture of shaft of left tibia, initial encounter for closed fracture (principal); N17.9 Acute kidney failure, unspecified; E78.5 Hyperlipidemia, unspecified; N40.0 Benign prostatic hyperplasia without lower urinary tract symptoms; F40.240 Claustrophobia; W19.XXXA Unspecified fall, initial encounter; Y92.009 Unspecified place in unspecified non-institutional (private) residence as the place of occurrence of the external cause; Z79.82 Long term (current) use of aspirin; S82.492A Other fracture of shaft of left fibula, initial encounter for closed fracture; Z20.828 Contact with and (suspected) exposure to other viral communicable diseases; N18.2 Chronic kidney disease, stage 2 (mild); G89.29 Other chronic pain; E66.01 Morbid (severe) obesity due to excess calories; Z68.32 Body mass index [BMI] 32.0-32.9, adult; I12.9 Hypertensive chronic kidney disease with stage 1 through stage 4 chronic kidney disease, or unspecified chronic kidney disease
CPT/HCPCS: 12345; 36415; 36416; 51702; 73562; 73590; 73600; 73610; 73620; 73700; 76000; 80048; 80053; 81003; 82962; 85025; 85610; 87426; 93005; 96372; 96375; 97161; 97165; 97530; 99283; C1713; J0131; J0690; J1100; J1170; J1644; J2270; J2370; J2405; J2704; J2765; J3010; J3490; J7030

== ENCOUNTER → 2020-05-13 14:26 | Outpatient (BNVA) | payer OTHER, SELFPAY | PROVIDERS: PCP Family Medicine; Visit Provider Specialist | DX: S82.402A Unspecified fracture of shaft of left fibula, initial encounter for closed fracture (principal); S82.202A Unspecified fracture of shaft of left tibia, initial encounter for closed fracture; Z48.89 Encounter for other specified surgical aftercare; X58.XXXA Exposure to other specified factors, initial encounter | CPT/HCPCS: 73610 ==

== ENCOUNTER → 2020-06-10 14:20 | Outpatient (BNVA) | payer OTHER, SELFPAY | PROVIDERS: PCP Family Medicine; Visit Provider Specialist | DX: S82.872A Displaced pilon fracture of left tibia, initial encounter for closed fracture (principal); X58.XXXA Exposure to other specified factors, initial encounter; Z48.89 Encounter for other specified surgical aftercare | CPT/HCPCS: 73610 ==

== ENCOUNTER → 2020-06-24 15:48 | Outpatient (BNVA) | payer OTHER, SELFPAY | PROVIDERS: PCP Family Medicine; Visit Provider Specialist | DX: S82.872A Displaced pilon fracture of left tibia, initial encounter for closed fracture (principal); M25.522 Pain in left elbow; X58.XXXA Exposure to other specified factors, initial encounter | CPT/HCPCS: 73080; 73610 ==

== ENCOUNTER → 2020-07-22 10:47 | Outpatient (BNVA) | payer OTHER, SELFPAY | PROVIDERS: PCP Family Medicine; Visit Provider Specialist | DX: Z48.89 Encounter for other specified surgical aftercare; S82.872A Displaced pilon fracture of left tibia, initial encounter for closed fracture; X58.XXXA Exposure to other specified factors, initial encounter | CPT/HCPCS: 73610 ==

== ENCOUNTER → 2020-08-19 10:14 | Outpatient (BNVA) | payer OTHER, SELFPAY | PROVIDERS: PCP Family Medicine; Visit Provider Specialist | DX: Z48.89 Encounter for other specified surgical aftercare; S82.872A Displaced pilon fracture of left tibia, initial encounter for closed fracture; X58.XXXA Exposure to other specified factors, initial encounter | CPT/HCPCS: 73610 ==

== ENCOUNTER → 2020-11-23 10:16 | Outpatient (BNVA) | payer OTHER, SELFPAY | PROVIDERS: PCP Family Medicine; Visit Provider Specialist | DX: S82.872A Displaced pilon fracture of left tibia, initial encounter for closed fracture (principal); Z48.89 Encounter for other specified surgical aftercare; X58.XXXA Exposure to other specified factors, initial encounter | CPT/HCPCS: 73610 ==

== ENCOUNTER → 2021-03-29 10:20 | Outpatient (BNVA) | payer OTHER, SELFPAY | PROVIDERS: PCP Family Medicine; Visit Provider Internal Medicine | DX: K92.1 Melena (principal); Z01.812 Encounter for preprocedural laboratory examination; Z20.822 Contact with and (suspected) exposure to COVID-19 | CPT/HCPCS: 87635 ==

== ENCOUNTER 2021-04-02 08:20 | Day surgery (SDC) | payer OTHER, MEDICARE, SELFPAY ==
[2021-04-02 08:34] VITALS: BP 136/85; PULSE 69; RESP 16; TEMP 36.5; O2SAT 98
--- NOTE | 2021-04-02 08:48 | ANES.PREANE2 ---
Pre-Anesthetic Assessment Pre-Anesthetic Assessment: Height/Weight: Height 1.88 m Weight 106.141 kg Temp Pulse Resp BP Pulse Ox 97.7 F 69 16 136/85 98 04/02/21 08:34 04/02/21 08:34 04/02/21 08:34 04/02/21 08:34 04/02/21 08:34 Preop Diagnosis: hematochezia Proposed Procedure: Operation Date: 04/02/21 09:30 Proposed Procedures p Colonoscopy 01437 K92.1(Not Applicable) - Octaviano Desai MD Was Beta Martha taken within 24 hours: N/A Was Clonidine taken within 24 hours: N/A Last intake: Intake Last Liquid Date 04/01/21 Last Liquid Time 22:00 Last Solid Date 03/31/21 Last Solid Time 21:00 Social: Social History: No alcohol and No tobacco Exam: Pre-Anes Outpt Exam: alert, oriented x 3, clear to auscultation bilaterally and regular rate & rhythm Airway: Submandibular: WNL Cervical ROM: WNL MP: 2 Dentition: Chipped History/ROS: No significant history except as noted Pulmonary: Pulmonary: Asthma and Sleep apnea Comments: CV/HEM: CV/HEM: HTN : Comments: pending evaluation by nephrology per pateints test came back elevated per patient Hepatic: Hepatic: None reported GI: GI: GERD and Hiatus hernia Metabolic: Metabolic: Hyperlipidemia Musc/skel: Musc/skel: None reported Neuropsych: Neuropsych: Depression Anesthetic Plan: ASA status: 3 Anesthesia: MAC Risk of > 500 ml blood loss (7ml/kg in children): No PFSH Anesthesia PFSH: Medical History (Updated 03/22/21 @ 13:41 by Octaviano Desai MD) BPH without obstruction/lower urinary tract symptoms Hyperlipidemia Hypertension Recurrent kidney stones Renal and ureteric calculus Surgical History S/P trigger finger release Status post extracorporeal shock wave therapy WITH STENT PLACEMENTS X3 Family History Mother , at age 73 Leukemia Father , at age 78 Parkinsons Heart disease Other CAD (coronary artery disease) Cancer Dementia Social History Smoking and tobacco status: never smoked Alcohol intake: current Alcohol intake frequency: holidays/special occasions only Adopted: No Caregiver/support person: No Lives independently: No Household members: spouse Marital status: service: Yes status: Retired Current occupational status: disabled History of recent travel: No Data Anesthesia Cardiac Studies: No Data to Display
[2021-04-02] MEDS: sodium chloride 0.9% 1,000 ML 30 ML IV (08:49)
--- NOTE | 2021-04-02 09:39 | P.HP_ITS ---
Same Day Surgery H&P Indication for Procedure/HPI DATE OF PROCEDURE: April 02, 2021 CHIEF COMPLAINT/INDICATIONFOR SURGICAL PROCEDURE: Screening average risk PREOP DIAGNOSIS: hematochezia PLANNED PROCEDRUE: Operation Date: 04/02/21 09:30 Proposed Procedures p Colonoscopy 13670 K92.1(Not Applicable) - Octaviano Desai MD Medications/Allergies* Home Medications Medication Instructions Recorded Confirmed Type atenolol 100 mg tablet See Rx Instructions PO DAILY 09/18/19 04/02/21 History atorvastatin 40 mg tablet 40 mg PO DAILY 09/18/19 04/02/21 History bupropion HCl 300 mg 24 hr tablet, 300 mg PO QAM 09/18/19 04/02/21 History extended release cyclobenzaprine 10 mg tablet 10 mg PO .prn tab 09/18/19 04/02/21 History finasteride 5 mg tablet 5 mg PO DAILY 09/18/19 04/02/21 History fluticasone propionate 50 1 spray INTRANASAL .prn ml 09/18/19 04/02/21 History mcg/actuation nasal spray,suspension gabapentin 100 mg capsule 200 mg PO QID cap 09/18/19 04/02/21 History hydrochlorothiazide 25 mg tablet 25 mg PO DAILY 09/18/19 04/02/21 History albuterol sulfate [ProAir HFA] 2 puff INHALATION 6XD PRN 04/18/20 04/02/21 History famotidine 20 mg PO BID 03/30/21 04/02/21 History methocarbamol 750 mg PO BID 03/30/21 04/02/21 History Allergies/Adverse Reactions Allergy/AdvReac Type Severity Reaction Status Date / Time nifedipine Allergy Unknown headache Verified 03/22/21 13:04 Current Medications: Generic Name Dose Route Start Last Admin Trade Name Freq PRN Reason Stop Dose Admin Sodium Chloride 1,000 mls @ 30 mls/hr 04/02/21 08:30 04/02/21 08:49 Sodium Chloride 0.9% IV 30 mls/hr .Q24H DANISHA Administration Pertinent History/Comorbid Conditions* Medical History (Updated 03/22/21 @ 13:41 by Octaviano Desai MD) BPH without obstruction/lower urinary tract symptoms Hyperlipidemia Hypertension Recurrent kidney stones Renal and ureteric calculus Surgical History (Updated 04/18/20 @ 21:38 by Mallory Valdez MD) S/P trigger finger release Status post extracorporeal shock wave therapy WITH STENT PLACEMENTS X3 Family History (Updated 09/18/19 @ 13:21 by Aziza Yeh LPN) Father, at age 78 Mother, at age 73 CAD (coronary artery disease) Dementia Heart disease Father Leukemia Mother Cancer Parkinsons Father Social History Smoking and tobacco status: never smoked Alcohol intake: current Alcohol intake frequency: holidays/special occasions only Adopted: No Caregiver/support person: No Lives independently: No Household members: spouse Marital status: service: Yes status: Retired Current occupational status: disabled History of recent travel: No Pertinent Exam Findings alert, oriented x 3, clear to auscultation bilaterally, regular rate & rhythm, operative site marked and procedure specific exam findings Recommendations Surgery/Procedure today Coding Level of Care Code Acute Director Of Rotc for Zuleyka Jeff
[2021-04-02 10:02] VITALS: BP 92/61; PULSE 65; RESP 18; TEMP 36.4; O2SAT 94
[2021-04-02 10:20] VITALS: BP 115/75; PULSE 73; RESP 18; O2SAT 97
--- NOTE | 2021-04-02 10:35 | ANE.PACU2 ---
Inpatient post-anesthesia follow up: Airway intact: Yes Vital signs: Temperature 97.5 F Pulse Rate 73 Respiratory Rate 18 Blood Pressure 115/75 Pulse Oximetry 97 Oxygen Delivery Me thod Room Air Oxygen Flow Rate Fraction of Inspir ed Oxygen Hydration adequate: Yes Mental status: Baseline
== END 2021-04-02 10:27 | disposition home or self-care (01) ==
PROVIDERS: PCP Family Medicine; Visit Provider Internal Medicine
PROC: 0DJD8ZZ Inspection of Lower Intestinal Tract, Via Natural or Artificial Opening Endoscopic (ICD-10-PCS; CPT 45378; principal; 2021-04-02 09:30)
DX: K92.1 Melena (principal); K57.30 Diverticulosis of large intestine without perforation or abscess without bleeding; I10 Essential (primary) hypertension; E78.5 Hyperlipidemia, unspecified; N40.1 Benign prostatic hyperplasia with lower urinary tract symptoms; N13.8 Other obstructive and reflux uropathy
CPT/HCPCS: 45378; 96360; J2704; J3490; J7030

== ENCOUNTER 2021-04-28 10:16 | Outpatient (CLI) | payer MEDICARE, OTHER, SELFPAY ==
--- NOTE | 2021-04-28 10:00 | XR_ITS ---
WS: [id number] KUB, AP view, 04/28/2021 Clinical Data: stones Comparison: KUB, 09/18/2019. Findings: No abnormal intraabdominal masses are seen. There is no dilatated small bowel or evidence of obstruct ion. There are faint calcifications overlying the left kidney. There is fecal material and colon gas obscu ring detail over both kidneys. XR/XR KUB [id number] Impression: Possible left renal calcifications.
== END 2021-04-28 10:17 | disposition home or self-care (01) ==
LOC: RAD 10:25
PROVIDERS: PCP Family Medicine; Visit Provider Urology
DX: N20.0 Calculus of kidney (principal)
CPT/HCPCS: 74018; 81003

== ENCOUNTER → 2021-12-01 13:04 | Outpatient (BNVA) | payer OTHER, SELFPAY | PROVIDERS: PCP Family Medicine; Visit Provider Internal Medicine | DX: R00.1 Bradycardia, unspecified (principal) | CPT/HCPCS: 93005; 99203; 99204 ==

== ENCOUNTER 2022-02-24 08:09 | Outpatient (CLI) | payer MEDICARE, OTHER, SELFPAY ==
--- NOTE | 2022-02-24 08:30 | USCV_ITS ---
Julio Peña Age: 66 Gender: M : 1955 Exam Date: 02/24/2022 08:27 Ordering Phys: Elier Isidro M.D ([email or web address]) Technologist: Sanjay Aguilera [place] [facility] [place]: [place] pain BP: 132 / 74 HR: 59 Rhythm: Sinus Technical Quality: Adequate MEASUREMENTS (Male / Female) Normal Values 2D ECHO LV Diastolic Diameter PLAX 4.5 cm 4.2 - 5.9 / 3.9 - 5.3 cm LV Systolic Diameter PLAX 2.8 cm IVS Diastolic Thickness 1.4 cm 0.6 - 1.0 / 0.6 - 0.9 cm IVS Systolic Thickness 1.6 cm LVPW Diastolic Thickness 1.5 cm 0.6 - 1.0 / 0.6 - 0.9 cm LVPW Systolic Thickness 1.7 cm LVOT Diameter 2.0 cm LV Ejection Fraction 2D Teich 67.9 % LV Ejection Fraction MOD 2C 67.4 % LV Ejection Fraction 2C AL 68.5 % LA Diameter 4.2 cm LA Width 0.0 cm IVC Diameter 1.4 cm M-MODE Aortic Annulus Diameter 3.7 cm LA Ao Ratio MM 1.1 MV E Point Septal Separation 0.8 cm DOPPLER AV Peak Velocity 107.0 cm/s LVOT Peak Velocity 76.0 cm/s AV Area Cont Eq vti 2.3 cm squared AV Area Cont Eq pk 2.3 cm squared MV Area PHT 2.3 cm squared Mitral E to A Ratio 0.7 MV E' Velocity 27.5 cm/s Mitral E to MV E' Ratio 6.1 Mitral E to LV E' Lateral Ratio 5.7 Mitral E to LV E' Septal Ratio 6.7 TR Peak Velocity 122.0 cm/s TR Peak Gradient 6.0 mmHg PV Peak Velocity 80.0 cm/s FINDINGS Left Ventricle Normal left ventricular size. LV systolic function is normal with EF of 55-60%. No regional wall motion abnormalities. Grade 1 diastolic dysfunction Right Ventricle The right ventricle is normal in size and function. Right Atrium The right atrium is normal in size. Left Atrium The left atrium is normal in size. Mitral Valve Structurally normal mitral valve without significant stenosis or prolapse. There is mild mitral regurgitation. Aortic Valve Structurally normal aortic valve without significant sclerosis or stenosis. There is no aortic regurgitation. Tricuspid Valve Structurally normal tricuspid valve without significant stenosis. Trace tricuspid regurgitation. Pulmonary artery systolic pressure is normal. Pulmonic Valve Not well-visualized Pericardium Normal pericardium without effusion. Aorta Normal ascending aorta dimension. IVC CONCLUSIONS LV systolic function is normal with EF of 55 to 60% Grade 1 diastolic dysfunction. Mild mitral regurgitation Trace tricuspid regurgitation No comparison studies available Elier Isidro MD (Electronically Signed) Final Date: 09 March 2022 19:14 S
== END 2022-02-24 08:10 | disposition home or self-care (01) ==
PROVIDERS: PCP Family Medicine; Visit Provider Internal Medicine
DX: I08.1 Rheumatic disorders of both mitral and tricuspid valves (principal); R07.9 Chest pain, unspecified
CPT/HCPCS: 93306

== ENCOUNTER → 2022-03-14 08:16 | Outpatient (BNVA) | payer MEDICARE, OTHER, SELFPAY | PROVIDERS: PCP Family Medicine; Visit Provider Internal Medicine | DX: Z11.59 Encounter for screening for other viral diseases (principal); R76.8 Other specified abnormal immunological findings in serum; M25.50 Pain in unspecified joint; R53.83 Other fatigue; E78.5 Hyperlipidemia, unspecified; E55.9 Vitamin D deficiency, unspecified | CPT/HCPCS: 36415; 80053; 82306; 82550; 83516; 83520; 83735; 84100; 84403; 84443; 85651; 86140; 86160; 86162; 86200; 86235; 86255; 86376; 86431; 86704; 86803; 87340; 99204 ==

== ENCOUNTER 2022-04-22 09:25 | Outpatient (CLI) | payer MEDICARE, OTHER, SELFPAY ==
--- NOTE | 2022-04-22 09:35 | XR_ITS ---
WS: [id number] XR hand RT 2V [id number] REASON FOR EXAM: R53.83 - Other fatigue FINDINGS: No fracture or focal bone lesion. Mild joint space narrowing with mild subchondral sclerosis and mild osteophytosis in the DIP joints o f the fingers. Similar somewhat more prominent arthropathic change in the carpal metacarpal and metacarpal phalangea l joint of the thumb. No periosteal reaction, erosions, or soft tissue calcifications. XR/XR hand RT 2V [id number] IMPRESSION: Osteoarthritis of the right hand, predominantly the thumb, as above
--- NOTE | 2022-04-22 09:35 | XR_ITS ---
WS: [id number] Lumbar spine, 3 views, 04/22/2022 Clinical Data: R53.83 - Other fatigue Comparison: None. Findings: No compression fractures are seen. There is degenerative disc narrowing at L5-S1. There is minimal re trolisthesis at L1-L2, L2-L3, L3-L4, L4-L5 and L5-S1. There is anterior osteoarthritic change from th e lower thoracic vertebral bodies through all the lumbar vertebral bodies. There is a slight levoscol iosis. The transverse processes and SI joints are normal. XR/XR lumbar spine 2-3V* [id number] Impression: 1. Multilevel minimal retrolisthesis from L1-L2 to L5-S1. 2. Anterior osteoarthritic change of all the lumbar vertebral bodies with a lev oscoliosis. 3. Degenerative disc narrowing at L5-S1.
--- NOTE | 2022-04-22 09:35 | XR_ITS ---
WS: [id number] Left hand, 2 views, 04/22/2022 Clinical Data: R53.83 - Other fatigue Comparison: , 02/14/2019. Findings: No fractures or dislocations are seen. The soft tissues are unremarkable. There is minimal osteoarthr itis at the base of the left first metacarpal articulation with the trapezium. XR/XR hand LT 2V [id number] Impression: Minimal osteoarthritis at base of left first metacarpal.
== END 2022-04-22 09:26 | disposition home or self-care (01) ==
PROVIDERS: PCP Family Medicine; Visit Provider Internal Medicine
DX: R53.83 Other fatigue (principal); M19.041 Primary osteoarthritis, right hand
CPT/HCPCS: 72100; 73120

== ENCOUNTER → 2022-04-26 10:20 | Outpatient (BNVA) | payer MEDICARE, OTHER, SELFPAY | PROVIDERS: PCP Family Medicine; Visit Provider Internal Medicine | DX: R76.8 Other specified abnormal immunological findings in serum (principal); M25.50 Pain in unspecified joint; R53.83 Other fatigue; M45.0 Ankylosing spondylitis of multiple sites in spine; E78.5 Hyperlipidemia, unspecified | CPT/HCPCS: 36415; 82607; 84182; 84207; 85025; 86003; 86008; 86235; 86812; 99214 ==

== ENCOUNTER → 2022-11-23 15:07 | Outpatient (BNVA) | payer MEDICARE, OTHER, SELFPAY | PROVIDERS: PCP Family Medicine; Visit Provider Specialist | DX: M79.662 Pain in left lower leg (principal); S82.872S Displaced pilon fracture of left tibia, sequela; S82.202S Unspecified fracture of shaft of left tibia, sequela; S82.402S Unspecified fracture of shaft of left fibula, sequela; X58.XXXS Exposure to other specified factors, sequela | CPT/HCPCS: 73590; 99213 ==

== ENCOUNTER → 2022-11-30 12:21 | Outpatient (BNVA) | payer OTHER, SELFPAY | PROVIDERS: PCP Family Medicine; Visit Provider Internal Medicine | DX: R00.1 Bradycardia, unspecified (principal) | CPT/HCPCS: 99214 ==

== ENCOUNTER → 2023-12-27 12:54 | Outpatient (BNVA) | payer OTHER, SELFPAY | PROVIDERS: PCP Family Medicine; Visit Provider Internal Medicine | DX: R00.1 Bradycardia, unspecified (principal) | CPT/HCPCS: 99214 ==

== ENCOUNTER → 2024-12-25 14:49 | Outpatient (BNVA) | payer OTHER, SELFPAY | PROVIDERS: PCP Family Medicine; Visit Provider Internal Medicine | DX: R00.1 Bradycardia, unspecified (principal); Z79.82 Long term (current) use of aspirin | CPT/HCPCS: 99213 ==

== ENCOUNTER 2025-04-30 19:57 | Outpatient (CLI) | payer OTHER, SELFPAY | END 2025-04-30 19:58 | disposition home or self-care (01) | LOC: SLEEP 19:58 | PROVIDERS: PCP Family Medicine; Visit Provider Internal Medicine Pulmonary Disease | DX: G47.33 Obstructive sleep apnea (adult) (pediatric) (principal) | CPT/HCPCS: 95810 ==